=== PATIENT | female | born 1970 | race Caucasian/White ===

== ENCOUNTER 2017-12-29 07:44 | Observation (INO) | payer BC ==
[2017-12-29] MEDS ORDERED: NS 0.9% 1000 ML* 1,000 ML IVPB SCH (07:59)
[2017-12-29] MEDS ORDERED: LORazepam TAB(*) 1 MG PO ONE (08:00)
[2017-12-29] MEDS ORDERED: Ondansetron INJ* 2 MG/ML VIAL IV ONE (08:00)
[2017-12-29] MEDS ORDERED: oxyCODONE SR TAB(*) 10 MG TAB.SR PO ONE (08:00)
[2017-12-29] MEDS ORDERED: Naproxen TAB* 250 MG PO ONE (08:00)
[2017-12-29] MEDS ORDERED: Clindamycin 900 MG IVPREMIX(* 900 MG/50 ML SDV IV ONE (08:00)
[2017-12-29] MEDS ORDERED: Scopolamine 1.5 mg* PATCH TRANSDERM SCH (08:00)
[2017-12-29] MEDS ORDERED: D5W 1/2 NS 1000 ML BAG* 1,000 ML IV SCH (08:00)
[2017-12-29] MEDS ORDERED: Ondansetron INJ* 2 MG/ML VIAL ONE ×2 (08:17→10:04)
[2017-12-29] MEDS ORDERED: LORazepam TAB(*) 1 MG ONE (08:17)
[2017-12-29] MEDS ORDERED: Scopolamine 1.5 mg* PATCH ONE (08:17)
[2017-12-29] MEDS ORDERED: oxyCODONE SR TAB(*) 10 MG TAB.SR ONE (08:30)
[2017-12-29 08:47] LABS: EGFR Non-African American 85.8 (>60)
[2017-12-29] MEDS ORDERED: Naproxen TAB* 250 MG ONE (08:48)
[2017-12-29 08:56] LABS: INR 0.82 (0.77-1.02)
[2017-12-29 08:57] LABS: ABS Basophils 0 10^3/ul (0-0.2); ABS Eosinophils 0.4 10^3/ul (0-0.6); ABS Lymphocytes 2.1 10^3/ul (1.0-4.8); ABS Monocytes 0.3 10^3/ul (0-0.8); ABS Neutrophils 3.6 10^3/ul (1.5-7.7); ABS Nucleated RBC 0 10^3/ul; Eosinophil % 6.3 % (0-6); Hematocrit 39 % (35-47); Hemoglobin 13.6 g/dl (12.0-16.0); Lymphocyte % 32.5 % (25-47); Mean Corpuscular HGB Conc 35 g/dl (31-36); Mean Corpuscular Hemoglobin 30 pg (27-31); Mean Corpuscular Volume 86 fL (80-97); Mean Platelet Volume 8 um3 (7.4-10.4); Nucleated Red Blood Cells % 0.1; Platelet Count 309 10^3/ul (150-450); Red Blood Count 4.56 10^6/ul (4.0-5.4); Red Cell Distribution Width 13 % (10.5-15); White Blood Count 6.4 10^3/ul (3.5-10.8)
[2017-12-29] MEDS ORDERED: Iohexol 350 (CONTRAST) 200 ML MDV IV ONE (09:37)
[2017-12-29] MEDS ORDERED: Lidocaine 1% INJ* 10 MG/ML 30 ML SDV ONE (09:37)
[2017-12-29] MEDS ORDERED: Heparin 2 UNITS/ML IVPREMIX* 1,000 ML IV ONE (09:37)
[2017-12-29] MEDS ORDERED: Heparin 2 UNITS/ML IVPREMIX* 2,000 ML IV ONE (09:38)
[2017-12-29] MEDS ORDERED: Midazolam* 1 MG/ML 10 ML VIAL (10 MG) ONE (09:42)
[2017-12-29] MEDS ORDERED: Ketorolac INJ* 30 MG/ML 1 ML VIAL ONE ×2 (09:42→10:44)
[2017-12-29] MEDS ORDERED: fentaNYL* 50 MCG/ML 5 ML VIAL (250 MCG VIAL) ONE (09:42)
[2017-12-29] MEDS ORDERED: nitroGLYCERIN DRIP* 25,000 MCG/250 ML BTL ONE (09:42)
[2017-12-29] MEDS ORDERED: PROCHLORPERAZINE INJ 5 MG/ML 2 ML VIAL ONE (10:17)
[2017-12-29] MEDS ORDERED: fentaNYL* 50 MCG/ML 2 ML VIAL (100 MCG VIAL) ONE ×2 (11:31→11:37)
[2017-12-29] MEDS ORDERED: HYDROmorphone PCA* 20 MG/20 ML PCA.SYRING ONE (11:34)
[2017-12-29] MEDS ORDERED: HYDROmorphone INJ* 1 MG/ML CARPUJECT SYRINGE ONE (11:55)
[2017-12-29] MEDS: NS 0.9% 1000 ML* 1,000 ML IV SCH ×2 (12:35→19:09)
[2017-12-29] MEDS ORDERED: Diazepam SYRINGE* 5 MG/ML 2 ML SYRINGE (10 MG total) IV PRN (12:49)
[2017-12-29] MEDS ORDERED: HYDROmorphone PCA* 20 MG/20 ML PCA.SYRING PCA SCH (13:00)
[2017-12-29] MEDS ORDERED: Diazepam INJ (NF) 5 MG/ML 10 ML VIAL (50 MG TOTAL) IV PRN (15:17)
[2017-12-29] MEDS ORDERED: PROCHLORPERAZINE INJ 5 MG/ML 2 ML VIAL IV PRN (16:16)
--- NOTE | 2017-12-29 16:41 | RAD ---
CPT II Codes: 6045F Procedure(s) performed: * Pelvic arteriogram including the lower abdominal aorta bilateral iliac arteries including the proximal portions of the superficial femoral arteries and femoral profundi. * Aortogram. * Catheter arteriography of the bilateral uterine arteries. * Catheter embolization of the bilateral uterine arteries. Date of service: December 2017 Indication for procedure: Heavy menstrual bleeding, urinary symptoms and pelvic pain in the presence of multiple uterine fibroids. Comparison: MRI of the pelvis November 09, 2017 Contrast: 90 mL Omnipaque 300 Fluoroscopy Time: 26.1 minutes Vessels Accessed: Percutaneous access was obtained with ultrasound guidance in the right common femoral artery in the retrograde direction towards the heart. Catheter arteriography was performed with the catheter tip in the following arteries: Aorta, Bilateral common iliac arteries, Bilateral internal iliac arteries and Bilateral uterine arteries. Anesthesia: Conscious sedation with IV Fentanyl and Versed as well as local 1% lidocaine injected locally at the arteriotomy site. Conscious sedation time: Timeout: 1003 hours Case end: 1149 hours Total conscious sedation time: 1 hour and 46 minutes Additional medications: * 500 mcg IA nitroglycerin injected intermittently throughout the course of the procedure to alleviate arterial spasm. * Intra-arterial Toradol, 15 mg injected into each uterine artery, for a total of 30 mg intra-arterial. * Intravenous Toradol, 30 mg. * Prior to the procedure the patient received: Ativan 1 mg p.o. Naproxen sodium 250 mg p.o. OxyContin 10 mg p.o. Scopolamine patch 1.5 mg transdermal applied to the mastoid process. Zofran 4 mg IV Antibiotic prophylaxis was provided by Clindamycin 900 mg IV PROCEDURE NOTE AND INTRAPROCEDURAL IMAGING FINDINGS: Immediately prior to the procedure the patient signed consent after thoroughly discussing all risks and benefits. The patient was positioned on the fluoroscopy table in the supine position and the bilateral groins were shaved, prepped and draped in standard sterile fashion. Using fluoroscopic imaging the location of the right common femoral head was marked externally with a skin marker on the patient's groin. Utilizing sonographic guidance and palpation the right common femoral artery was cannulated overlying the right femoral head with an 18-gauge needle. An ultrasound image was saved. A 0.035" Doe wire was slowly and smoothly advanced to the aortic bifurcation under fluoroscopic imaging. No buckling of the wire was visualized to indicate dissection. The needle was removed and a 5-New Zealander SideArm access sheath was advanced over the wire until the tip terminating at the right external iliac artery. Utilizing a hydrophilic 0.035" wire and 5-New Zealander C2 catheter the contralateral left common iliac artery was accessed. The wire was advanced under fluoroscopic control to the proximal left superficial femoral artery. The C2 catheter was removed and over the wire a 5 New Zealander Merit Impress catheter was advanced over the iliac bifurcation and the reverse curve was formed in the lower abdominal aorta. Utilizing the reverse curve catheter and the wire the ipsilateral right common iliac artery was selected. With the tip of the catheter in the proximal most portion of the right internal iliac artery, angiography was performed to detail the branches of the right internal iliac artery and to locate the ostium of the right uterine artery. Arteriograms in multiple oblique projections were performed to best discern the branch point of the uterine artery. The uterine artery was selected and cannulated utilizing the combination 0.035" wire and 5-New Zealander catheter. In order to ensure maximum arterial inflow for the purpose of particle distribution, a microcatheter and wire system were advanced into the 5-New Zealander catheter securing access into the uterine artery. Under careful fluoroscopic control access was maintained in the uterine artery while pushing back the 5-New Zealander catheter until the tip resided more superiorly in the internal iliac artery. Prior to embolization, contrast injection into the horizontal portion of the uterine artery demonstrated a small amount of collateralized blood flow to the right adnexa and ovary from distal branches of the right uterine artery. It was not technically feasible to advance the microcatheter beyond the branch point of the uterine artery. Considering the patient's age it was determined potential partial embolization of the right ovary was unlikely due to morphology of the collateralization and would be clinically insignificant even if it did occur. Intra-arterial nitroglycerin was injected intermittently to alleviate arterial spasm. Under fluoroscopic control approximately 1/2 vial of 500 um Embozenes and 1/4 vial 500- 700 um Embospheres were slowly injected into the right uterine artery to near complete stasis. Towards the end of embolization 15 mg of Toradol was injected intra-arterially. The microcatheter was pulled back into the more proximal descending portion of the uterine artery and contrast angiography depicted near complete stasis of the uterine artery. The microcatheter and microwire were removed. Contrast arteriography through the 5-New Zealander catheter in the right internal iliac artery demonstrated patency and brisk flow through all branches of the internal iliac artery with the exception of the right uterine artery which demonstrates near complete stasis. The 0.035" wire was reinserted into the 5-New Zealander catheter and the system was utilized to access the contralateral left internal iliac artery. With the tip of the 5 New Zealander Merit Impress catheter in the proximal most portion of the left internal iliac artery, angiography was performed to detail the branches of the left internal iliac artery and to locate the ostium of the left uterine artery. Arteriograms in multiple oblique projections were performed to best discern the branch point of the uterine artery. Once the uterine artery was identified, the microcatheter and microwire were advanced into the parent catheter and, in conjunction with contrast angiography, the uterine artery was identified and selected with the microcatheter and wire system. Prior to embolization, contrast injection into the horizontal portion of the left uterine artery demonstrated no large, obvious collateral blood flow to the ovary or a definite cervicovaginal branch descending inferiorly. Intra-arterial nitroglycerin was injected intermittently to alleviate arterial spasm. Under fluoroscopic control approximately 1/8 vial of 500 um Embozenes and 1/4 vial 500-700 um Embospheres were slowly injected into the left uterine artery to near complete stasis. Towards the end of embolization 15 mg of Toradol was injected intra-arterially. The microcatheter was pulled back into the more proximal descending portion of the uterine artery and contrast angiography depicted near complete stasis of the uterine artery. The microcatheter and microwire were removed. Contrast arteriography through the 5-New Zealander catheter in the left internal iliac artery demonstrated patency and brisk flow through all branches of the internal iliac artery with the exception of the left uterine artery which demonstrates near complete stasis. The 5-New Zealander catheter and 0.035" wire were utilized to access the left external iliac artery which allowed a safe removal of the 5-New Zealander Impress catheter. Due to the lower than expected volume of the utilized during uterine artery embolization it was decided contrast arteriography of the abdominal aorta to study the ovarian arteries would be performed to determine if there are any large ovarian collaterals to the uterus or the uterine fibroids. The 0.035" was redirected to the abdominal aorta. Over the wire a "pigtail" multi sidehole injection catheter was advanced into the abdominal aorta immediately above the level of the renal arteries. An aortogram was performed visualizing the lower abdominal aorta and complete bilateral iliac arterial system. Incidentally noted are widely patent normal appearing renal arteries bilaterally as well as multilevel lumbar arteries and the inferior mesenteric artery. No large uterine arteries were identified. The wire was reinserted into the pigtail catheter, the loop straightened and both removed under fluoroscopic control. The access sheath was removed and pressure was held at the common femoral arteriotomy for approximately 15 minutes. There were no signs of bleeding at the right groin access site and the site was dressed with sterile gauze and Tegaderm. The patient tolerated the procedure well and was transferred to the short stay recovery unit in stable condition for routine overnight observation and pain and nausea control. SUMMARY OF PROCEDURE, IMAGING FINDINGS AND INTERVENTIONS PERFORMED: 1. Diagnostic studies performed: * Arterial access was obtained at the right common femoral artery in the retrograde direction (i.e. towards the heart) with ultrasound guidance. A sonographic image was recorded. * Diagnostic catheter angiography (necessary to perform the appropriate interventions) was performed with the catheter tip in the aorta, right common iliac artery, bilateral internal iliac arteries and bilateral uterine arteries. * Catheter arteriography was performed of the abdominal aorta, bilateral renal arteries, bilateral iliac arterial system and specifically the bilateral uterine arteries. 2. Interpretation of diagnostic studies performed: * Bilateral uterine arteries providing arterial flow to the uterus and uterine fibroids. * Aortography did not reveal any hypertrophied ovarian arteries providing flow to the uterus or the patient's uterine fibroids. 3. Surgical interventions performed: * Near stasis embolization of the bilateral uterine arteries utilizing approximately 5/8 vial of 500 um Embozenes and 3/4 vial 500-700 um Embospheres. 4. Interpretation of interventions performed: * Final arteriography demonstrated near complete stasis of the bilateral uterine arteries.. PLAN: 1. The patient will be admitted to short stay surgical unit for routine overnight observation including pain and nausea control. 2. Outpatient clinical and imaging follow-up according to the Interventional Radiology protocol.
[2017-12-29] MEDS ORDERED: Ondansetron INJ* 2 MG/ML VIAL IV SCH (17:00)
[2017-12-29] MEDS: Ketorolac INJ* 15 MG/ML 1 ML VIAL IV PUSH SCH ×2 (17:02→23:02)
--- NOTE | 2017-12-29 17:36 | PN ---
Progress Note - Progress Note Date of Service: 12/29/17 SOAP: Subjective: Pain currently controlled. No nausea. No emesis. Denies dizziness or vertigo. Objective: Selected Entries 12/29/17 12/29/17 15:34 16:32 Temperature 98.0 F Temperature Oral Source Pulse Rate 73 Respiratory 18 Rate Blood Pressure 121/65 (mmHg) Blood Pressure 77 Mean O2 Sat by Pulse 95 Oximetry Sleeping, but arousable to voice. AAO x 3 when aroused. Abdomen is soft, minimally tender to palpation over suprapubic area Right groin is soft, nontender 2+ pulses at right [employer], pop and DPA Right leg is neuromuscular intact Assessment: 47 YOF status post UFE with pain and nausea currently controlled. Plan: 1. Patient seems to respond better to compazine than zofran. Will change anti- emetic to Compazine 10 mg IV Q 6 hours. 2. Otherwise standard overnight pain & nausea control according to Interventional Radiology protocol.
[2017-12-29] MEDS ORDERED: Ondansetron INJ* 2 MG/ML VIAL IV PRN (17:40)
--- NOTE | 2017-12-29 20:44 | HP ---
CC: Jannette Khanna MD * HISTORY AND PHYSICAL: DATE OF ADMISSION: 12/29/17 PRIMARY CARE PROVIDER: Jannette Khanna MD ATTENDING PHYSICIAN WHILE IN THE HOSPITAL: Ellen Lindsay MD * (dictated by Moon Ashby NP). CHIEF COMPLAINT: Status post uterine artery embolization. HISTORY OF PRESENT ILLNESS: Ms. Falcon is a 47-year-old female who was admitted to the hospital for inter-ventional radiology with urinary and gynecological symptoms in the presence of multiple uterine fibroids. The patient first discovered her uterine fibroids in 2012 after experiencing scant premenstrual bleeding and dyspareunia, anemia. She underwent a myomectomy with Dr. Paul in 2012. Subsequently, her symptoms improved until she began to experience lower abdominal and pelvic pressure and pain for the past 2 years. At baseline, she has major pelvic pain, rates it at a 4/10 and bad at 8/10 during the week of her menses. For the past 2 years, she has required an extra large box of menstrual pads, 32 pads for every cycle. She was admitted to the hospital to Interventional Radiology today for uterine artery embolization, we were asked to see and coordinate her medical care during her hospitalization. PAST MEDICAL HISTORY: 1. GERD. 2. Pure hypercholesterolemia. 3. Hypertension. 4. Uterine leiomyoma. PAST SURGICAL HISTORY: 1. Myomectomy in 2012. 2. She had a perforated right tympanic membrane which was repaired with a patch that did not hold. MEDICATIONS: 1. Hydrochlorothiazide 25 mg p.o. daily. 2. Procardia 60 mg p.o. daily. ALLERGIES TO MEDICATIONS: 1. PENICILLIN. 2. ZITHROMAX. 3. LEVOFLOXACIN. FAMILY HISTORY: Father due to cancer, patient states prostate cancer. Mother, hypertension. SOCIAL HISTORY: The patient does not smoke, she does not drink. She does not do any illicit drug use. 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 Her surrogate decision maker in the event she is unable to make her own medical decisions is her significant other, Singh [place], his phone number is [phone]. REVIEW OF SYSTEMS: There is no documented fever, there has been no significant weight change. There is no double vision, no ear drainage. No rhinorrhea. She denies any sore throat. She denies having chest pain or shortness of breath. She denies nausea or vomiting. Denies dysuria or urinary frequency. Denies any loss of consciousness. No pruritus or skin ulcerations. She does complain of some lower abdominal pain and heavy vaginal bleeding. Review of 14 systems is completed and all others are negative. PHYSICAL EXAMINATION GENERAL: At this time, Ms. Falcon is a 47-year-old female, she appears tired post surgery, resting in the bed. She does not appear to be in any acute distress. VITAL SIGNS: Temperature was 98.0, pulse rate 73, respirations 16, O2 saturation 97%, blood pressure 121/65. HEENT: Head is atraumatic, normocephalic. Eyes: EOMs are intact. Sclerae anicteric, not pale. Oral mucosa appears moist. No oropharyngeal erythema. NECK: Supple. LUNGS: Clear to auscultation bilaterally. No wheezes, rales or rhonchi. CARDIAC: S1, S2. Rate and rhythm is regular. No murmurs, rubs or gallops. ABDOMEN: Soft. Bowel sounds are present x4. EXTREMITIES: Pulses are +2 throughout, she is moving all 4 extremities with strength 5/5. NEUROLOGIC: She is awake to verbal stimuli. She is drowsy from her surgery. She is oriented x3. Her speech is clear. There is no focal deficits. SKIN: Intact. DIAGNOSTIC STUDIES AND LABORATORY DATA: WBC's are 6.4, RBC's 4.56, hemoglobin 13.6, hematocrit was 39, platelet count was 309,000. INR was 0.82. PTT was 29.8. Chemistry: Sodium 137, potassium 3.2, chloride 102, carbon dioxide was 27, anion gap was 8, BUN 13, creatinine 0.73. Glucose was 91, calcium 9.9. Beta HCG quantitative was less than 0.60. ASSESSMENT AND PLAN: Ms. Falcon is a 47-year-old female that presented to the hospital today for a uterine artery embolization by Dr. Oliveira. We were asked to evaluate her and manage her medical conditions. She will be admitted to short-stay surgical. 1. Uterine artery embolization: Management per Dr. Oliveira. 2. Hypertension: We will continue her hydrochlorothiazide and Procardia. 3. Gastroesophageal reflux disease: She is not currently on any medication. 4. Pure hypercholesterolemia: She is borderline and she is not on any medication at this time. 5. DVT prophylaxis: She will be placed on SCDs. 6. Code status: She is a full code. 7. Fluid, electrolytes and nutrition: She can have a regular diet. TIME SPENT: Time spent on this H and P was approximately 60 minutes, greater than the half of that time was spent with the patient obtaining history and physical and the other half was going over the plan of care with the patient and implementing the plan of care. I discussed this plan with my attending Dr. Ellen Lindsay and she is in agreement. MOON ASHBY, MUSIC MIXER [id number]/CPS #: [id number] ZAID
[2017-12-29] MEDS: PROCHLORPERAZINE INJ 5 MG/ML 2 ML VIAL IV SCH (23:01)
[2017-12-30] MEDS: NS 0.9% 1000 ML* 1,000 ML IV SCH ×2 (00:06→05:31)
[2017-12-30] MEDS: PROCHLORPERAZINE INJ 5 MG/ML 2 ML VIAL IV SCH (04:47)
[2017-12-30] MEDS: Ketorolac INJ* 15 MG/ML 1 ML VIAL IV PUSH SCH (04:48)
--- NOTE | 2017-12-30 08:38 | PN ---
Progress Note - Progress Note Date of Service: 12/30/17 SOAP: Subjective: No pain complaints. Patient reports 5/10 cramping at right pelvis. Denies nausea or emesis. + void. Has been drinking water and has eaten jello and mashed potatoes. Objective: Selected Entries 12/30/17 07:35 Temperature 98.7 F Temperature Temporal Artery Source Scan Pulse Rate 72 Respiratory 16 Rate Blood Pressure 131/67 (mmHg) Blood Pressure 79 Mean O2 Sat by Pulse 96 Oximetry NAD, AAO x 3 Sleepy, but arousable to voice. Abd is soft, minimally tender to palpation over the suprapubic area. Right groin is soft, nontender Dressing is CDI 2+ pulses at right [employer], pop and DPA Right leg is neuromuscular intact Assessment: 47 YOF POD #1 Uterine Fibroid Embolization, pain and nausea adequately controlled and taking PO without issue. Plan: 1. Transition IV to PO medications. 2. Encourage continue to advance diet. 3. Ambulate with assistance.
[2017-12-30] MEDS ORDERED: HYDROcodone/ACETAMIN 5-325 MG* 1 TAB PO PRN (08:40)
[2017-12-30] MEDS ORDERED: Hydrochlorothiazide TAB* 25 MG PO SCH (09:00)
[2017-12-30] MEDS ORDERED: NIFEdipine ER TAB* 60 MG PO SCH (09:00)
[2017-12-30] MEDS ORDERED: Ketorolac TAB * 10 MG TAB PO SCH (11:00)
--- NOTE | 2017-12-30 11:37 | PN ---
Progress Note - Progress Note Date of Service: 12/30/17 SOAP: Subjective: Pain controlled at 2/10 "cramping" at right pelvis. No nausea or emesis. Small breakfast of apple sauce and dry cereal. Drinking water. Walked around unit x 1. + void. Wants to go home. Objective: Selected Entries 12/30/17 12/30/17 12/30/17 07:35 08:00 09:59 Temperature 98.7 F Temperature Temporal Artery Source Scan Pulse Rate 72 Respiratory 16 Rate Blood Pressure 131/67 (mmHg) Blood Pressure 79 Mean O2 Sat by Pulse 97 Oximetry Patient on Room Yes Air Physical Exam unchanged from earlier today. Assessment: 47 YOF POD #1 Uterine Fibroid Embolization with pain and nausea controlled with PO regimen has met criteria for D/C to home. Plan: 1. Discharge to home. 2. Routine Interventional Radiology follow up will include RN clinic follow up telephone calls Tuesday, and Tuesday. Follow up in the clinic in 6 weeks and 6 months. 3. Outpatient Rx regimen will include: Toradol 10 mg PO Q 6 hours x 3 days, dispense #15, 1 refill AFTER 3 days of Toradol, start Ibuprofen (aka, Advil) 400 mg PO every 6 hours x 3 days (DO NOT COMBINE TORADOL AND IBUPROFEN) Alex 5/325 1 or 2 tablets PO Q 6 hours PRN x 5 days, dispense #30 (thirty), no refills Compazine 10 mg PO Q 6 hours x 5 days, dispense #30, 1 refill Scopoloamine 1.5 mg TD patch: on the morning of Tuesday, replace current patch with new patch and wear x 3 days 4. Patient advised to purchase laxative tea (E.g. Smooth Move) and drink one cup daily x 1 week to avoid constipation.
[2017-12-30] MEDS ORDERED: Prochlorperazine TAB* 10 MG PO SCH (12:00)
[2017-12-30] MEDS ORDERED: diPHENhydraMINE PO* 50 MG PO ONE (13:01)
[2017-12-30] MEDS ORDERED: diPHENhydraMINE PO* 50 MG ONE (13:14)
[2017-12-30] MEDS ORDERED: oxyCODONE TAB* 5 MG TAB ONE (13:52)
[2017-12-30 14:31] VITALS: BP 119/64
[2017-12-30] MEDS ORDERED: oxyCODONE/Acetamin 5/325 MG* TAB PO PRN (14:34)
[2017-12-30] MEDS ORDERED: Diazepam TAB(*) 5 MG PO PRN (14:35)
--- NOTE | 2017-12-30 14:45 | PN ---
Progress Note - Progress Note Date of Service: 12/30/17 SOAP: Received call that patient had itchy rash on back and chest. Subjective: Pain "close to 10". No nausea or emesis. No itching after Benadryl. Objective: Selected Entries 12/30/17 12/30/17 11:30 13:55 Temperature 98.5 F Temperature Temporal Artery Source Scan Pulse Rate 73 Respiratory 20 Rate Blood Pressure 119/64 (mmHg) Blood Pressure 76 Mean O2 Sat by Pulse 93 Oximetry No rash visible. Physical Examination unchanged. Assessment: 47 YOF POD #1 s/p UFE with pain and rash after receiving [place]. Plan: 1. D/C [place]. 2. Rash resolved after Benadryl. 3. Patient confirmed again that she has taken Percocet in the past without issue. Will prescribe Percocet for breakthrough pain. 4. Add Valium 5 mg PO daily PRN x 5 days. 5. Still okay for D/C after one hour observation.
--- NOTE | 2018-01-01 02:19 | DS ---
CC: Jannette Khanna MD * DISCHARGE SUMMARY: DATE OF ADMISSION: 12/29/17 DATE OF DISCHARGE: 12/30/17 PRIMARY CARE PROVIDER: Jannette Khanna MD MY ATTENDING WHILE IN HOSPITAL: Charley Hernandez DO * (DICTATED BY KILO CARRION) STUDIES DONE WHILE IN THE HOSPITAL: Uterine artery embolization. Please see report. PRIMARY DISCHARGE DIAGNOSIS: Uterine fibroid. SECONDARY DISCHARGE DIAGNOSES: 1. Gastroesophageal reflux disease. 2. Hypercholesterolemia. 3. Hypertension. MEDICATIONS AT DISCHARGE: 1. Control 1 tab p.o. q.a.m. 2. Hydrochlorothiazide 25 mg p.o. daily. 3. Nifedipine 60 mg p.o. daily. NEW MEDICATIONS AT DISCHARGE: 1. Ibuprofen 400 mg p.o. q.6 hours as needed. 2. Ketorolac 10 mg q.6 hours as needed for 3 days 3. Percocet 1 tab p.o. q.6 hours as needed for 5 days. 4. Compazine 10 mg p.o. q.6 hours x5 days. 5. Scopolamine 1 patch transdermal 1.5 mg one patch transdermal once. 6. Diazepam 5 mg p.o. q.8 hours x7 days. NEW MEDICATIONS AT DISCHARGE: 1. Percocet. 2. Compazine. 3. Scopolamine. 4. Diazepam. 5. Ibuprofen. 6. Ketorolac. MEDICATIONS DISCONTINUED AT DISCHARGE: None. HOSPITAL COURSE: This is a brief summary of the patient's presentation. For more details, please see the history and physical from Moon Ashby NP from 12/29/17. In brief, the patient is a 47-year-old female with a past medical history significant for the above who presented to the emergency department for a planned Interventional Radiology uterine artery embolization for multiple uterine fibroids. The patient previously undergone myomectomy, but had persistent pelvic pain and menorrhagia. The patient underwent a uterine artery embolization on 12/29/[address] Oliveira. Please see report for more details. Patient improved. The patient had significant pain. It was controlled with IV pain medication and had significant nausea, which was controlled with Compazine. On 12/30/17, the patient's vital signs were stable. The patient was switched to p.o. medications with [place], Percocet and Toradol. On 12/30/17, the patient developed a rash in the morning of 12/30/17. The patient's only new medication was [place]. The patient was instructed not to take [place] again and was switched to Percocet which he had taken previously without incident. The patient was given Benadryl. The patient has no respiratory symptoms. The patient felt her pain was now controlled with oral pain medication and was discharged on 12/30/17. The patient had a slight amount of bleeding with her urination, which is a normal consequence of this procedure and was told to call Dr. Oliveira's office if this gets worse or persists. Dr. Oliveira is aware. PHYSICAL EXAMINATION AT DISCHARGE: The patient is a 47-year-old female who appears stated age and sitting comfortably in bed, in no acute distress. Vital signs at the time of discharge: Temperature 98.5, pulse rate 73, respiratory rate 16, oxygen saturation 93% on room air, blood pressure 119/64. HEENT: Head normocephalic, atraumatic. Sclerae anicteric. No conjunctival injection. Nasal mucosa moist. Oral mucosa moist. No pharyngeal erythema, discharge or exudate. Neck: Supple, nontender, no lymphadenopathy, no carotid bruits auscultated. Cardiac: Regular rate and rhythm. No clicks, murmurs, gallops, or rubs. Pulses 2+ in bilateral dorsalis pedis, posterior tibialis, and radial areas. No swelling noted in the bilateral lower extremities. Respiratory: Clear to auscultation bilaterally. No wheezes, rales, rhonchi, good air exchange bilaterally. Abdomen: Soft, nontender, nondistended, bowel sounds present, normoactive in all 4 quadrants. Genitourinary: No suprapubic tenderness or CVA tenderness. Skin: The patient has a macular rash on her upper chest, left side of her abdomen and on her right hand, which does not itch and is not warm or inflamed. No rash. Neuro: Cranial nerves II through XII grossly intact. No focal deficits. Alert and oriented x3. Psychiatric: Pleasant and cooperative. LABORATORY DATA ON DAY OF DISCHARGE: Not available. The laboratory note from admission, potassium 3.2, hemoglobin of 13.6 on admission, platelet count 309. Beta hCG less than 0.6. DISCHARGE PLAN: The patient will be discharged to home on pain medications as above. The patient is proceeding routinely from procedure. The patient was instructed to take Benadryl as needed at home for persistent rash. The patient is to call her primary care provider or Dr. Oliveira's office if her rash progresses. The patient should return to the emergency department if she develops shortness of breath or swelling of her face or neck in conjunction with her rash. The patient should follow discharge instructions as outlined by Dr. Oliveira and follow up as instructed. The patient should engage in activities as tolerated, engage in no excessive physical activity in the first week and easing back to her normal level of functioning. The patient is to have regular, unrestricted diet. The patient should return to the hospital for alarming symptoms such as chest pain, shortness of breath or significant increase in her bleeding from significant increase in her hematuria. TIME SPENT: Approximately 60 minutes were spent on this discharge, 30 of which was spent [id number] with the patient obtaining history and physical and discussing the treatment plan. KILO CARRION [id number]/[facility] #: [id number] MTDLuis Enrique
[2018-01-01] MEDS ORDERED: Scopolamine PATCH Remove* 1 NOTE MISC PATCH OFF ONE (08:00)
== END 2017-12-30 16:30 | disposition home or self-care (01) ==
LOC: CHICATH 07:44 → SSU 12:35
PROVIDERS: ADMIT Internal Medicine; ATTEND Radiology Diagnostic Radiology
DX: D25.9 Leiomyoma of uterus, unspecified (principal); K21.9 Gastro-esophageal reflux disease without esophagitis; E78.00 Pure hypercholesterolemia, unspecified; I10 Essential (primary) hypertension; Z88.0 Allergy status to penicillin
CPT/HCPCS: 36415; 37243; 75625; 75736; 76937; 80048; 84702; 85025; 85610; 85730; 99156; 99157; A9270-GY; C1725; C1884; C1887; G0378; J0780; J1170; J1644; J1885; J2250; J2405; J3010; Q0164

== ENCOUNTER 2018-01-15 17:06 | Emergency (ER) | payer BC ==
--- OUTSIDE RECORDS SUMMARY | 2018-01-15 17:38 | XMS REPORT ---
:1970 External Reference #:[id number] Author Organization [facility] Address [address] [address] Phone [phone] Care Team Providers Name Role Phone Jannette Khanna MD Primary Care Physician Unavailable Payers Type Date Identification Numbers Payment Provider Subscriber Commercial Effective: Policy Number: [id number] [employer] Kristina Rob 2013 PayID: [id number] [address] [address] MARY ALICE Davila [address] Medigap Part B Effective: 2010 Policy Number: [id number] BS Facets Kristina Rob Expires: 2013 Group Name: [address] [address] PayID: [id number] MARY ALICE Davila [address] Problems Date Description Provider Status Onset: 02/11/2016 Essential hypertension Gladys Mckee, N.P. Active Onset: 03/21/2017 Pure hypercholesterolemia Gladys Mckee, N.P. Active Onset: 03/21/2017 Gastroesophageal reflux disease Gladys Mckee, N.P. Active Onset: 10/26/2017 Uterine leiomyoma Edward Oliveira M.D. Active Family History Date Family Member(s) Problem(s) Comments Father due to Cancer () Father due to Cancer () - specifics unknown Mother Hypertension age 73 First Son Healthy Age 19 Siblings 3 1 Sister - Healthy age 54 1 Brother - Healthy age 50 1 Brother - Healthy age 48 First Brother Healthy Second Brother Healthy First Sister Healthy Social History Type Date Description Comments Marital Status Lives With Boyfriend Occupation [employer] Manager [employer] ETOH Use Denies alcohol use Smoking Patient has never smoked Recreational Drug Use Never Used Drugs Daily Caffeine Consumes on average 1 cup of regular coffee per day Exercise Type/Frequency Exercises regularly Allergies, Adverse Reactions, Alerts Date Description Reaction Status Severity Comments 08/19/2010 Penicillin rash active Moderate r 02/20/2016 Zithromax Urticaria active 02/20/2016 Levofloxacin active Medications Medication Date Status Form Strength Qnty SIG Indications Ordering Provider Sulfamethoxazole/ 01/10 Active Tablets 800-160mg 14tab 1 tablet N39.0 Jannette Trimethoprim DS s twice Cotton, daily for M.D. 7 days Phenazopyridine 01/10 Active Tablets 200mg 6tabs 1 PO tid N39.0 Jannette HCL x 2 days Cotton, M.D. Nifedipine ER 01/04 Active Tablets ER 60mg 90tab Take 1 Osmotic Release 24HR s Tablet By Varn, N.P. Mouth Every Day Omeprazole 02/[address] 20mg 30cap Take 1 K21.9 s Capsule Varn, N.P. By Mouth Every Day prn Nifedical XL 11/09 Active Tablets ER 60mg 90tab take 1 24HR s tablet by Cotton, mouth M.D. every day Hydrochlorothiazi 09/10 Active Tablets 25mg 90tab take one s tablet by Cotton, mouth M.D. every day Lo-Ovral-28 08/19 Active Tablet 84tab take one s tablet by Cotton, mouth M.D. every day Medrol (Maicol) 02/19 Hx Tablets 4mg 1Pak 6 tablets po day 1 Varn, N.P. - 5 tablets 02/25 po day 4 tablets po day 3 3 tablets po day 4 2 tablets po day 5 1 tablet po day 6 Levofloxacin 02/16 Hx Tablets 500mg 10tab one by s mouth Varn, N.P. - daily for 02/19 10 Zithromax 02/10 Hx Suspension 200mg/5ML 37ml 12.5 ml Rec for first Cotton, - day then M.D. 02/16 6 ml 4 days Fluticasone 02/10 Hx Suspension 50mcg/Act 16uni 1 sprays J01.00 ts each Varn, N.P. - nostril 02/21 daily as needed Xyzal 11/20 Hx Solution 2.5mg/5 310ml 1o ml by 477.9 ML mouth Varn, N.P. - every 05/21 night /2014 Tobrex 04/17 Hx Solution 0.3% 5ml 2 drop 372.00 every 4 Varn, N.P. - hours for 05/20 Levaquin 12/24 Hx Solution 500mg/100 700ml 500 mg po ML daily x Varn, N.P. - 10 days 12/31 Azithromycin 11/27 Hx Solution 500mg 5Days 500 mg 466.0 Rec once Cotton, - daily for M.D. 12/07 Robitussin ac 11/27 Hx Solution 120cc 1 - 2 tsp 466.0 q 4 - 6 Varn, N.P. - hrs prn 01/07 cough Flonase 09/16 Hx Suspension 50mcg/Act 16uni Inhale 2 ts Sprays In Varn, N.P. - Each 11/19 Nostril /2012 Every Day as Needed Azithromycin 08/21 Hx Tablets 250mg 6tabs two tabs 461.9 day one, Varn, N.P. - one daily 08/31 until gone Fluticasone 08/21 Hx Suspension 50mcg/Act 16gm 2 sprays 461.9 Gladys Propionate each Varn, N.P. - nostril 09/04 daily as needed Vesicare 05/16 Hx Tablets 5mg 90tab 1 po qd 596.9 Flakita Elías Rutledge M.D., FACP 10/02 Cipro Oral 05/08 Hx 250mg/5 70ml 5 ml bid 599.0 Jannette Suspension /2011 ML for 7 Cotton, - days M.D. 05/16 Azithromycin 01/31 Hx Solution 500mg 5Days 500 mg 461.9 Jannette /2012 Rec once Cotton, - daily for M.D. 05/08 5 days /2011 Flonase 01/31 Hx Suspension 50mcg/Act 1unit 2 461.9 s intranasa Cotton, - l puffs M.D. 03/02 to each nostril daily Flexeril Hx Tablets 10mg 20tab 1 po bid 847.0 s Walls, - M.D. 11/19 Ibuprofen Hx Tablets 600mg 40tab 1 tab by 847.0 s mouth Walls, - three M.D. 04/17 times day prn Cipro 12/18 Hx Suspension 250mg/5ML 70ml 5 ml by Rec (5%) mouth Cotton, - twice M.D. 12/18 daily for 7 days Bactrim DS 12/18 Hx Tablets 800-160mg 20tab one by s mouth Cotton, - twice M.D. 12/18 daily for 10 days Sulfamethoxazole12/18 Hx one by TMP mouth Cotton, - twice M.D. 12/25 daily for 7 days Lo/Ovral-28 09/10 Hx Tabs 0.3-30mg- 1Mo Take One mcg Tablet By Cotton, - Mouth M.D. 11/09 Every Day Zithromax 08/19 Hx Suspension 200mg/5ML 37ml 12.5 ml Rec for first Cotton, - day then M.D. 08/29 6 ml for 4 days Flonase 08/19 Hx Suspension 50mcg/Act 1unit 2 s intranasa Cotton, - l puffs M.D. 08/29 to each nostril daily HCTZ Hx 25mg. 90uni 1 tablet ts daily Cotton, - M.D. 11/09 Immunizations CPT Code Status Date Vaccine Reaction Lot # [id number] Given 09/21/2017 Influenza Virus Vaccine, Noimmediate [id number] Quadrivalent, Split, reaction... Preservative Free 29138 Given 08/13/2016 Influenza Virus Vaccine, no reaction noted .. . [id number] Quadrivalent, Split, Preservative Free Q2037 Given 09/14/2014 Fluvirin Im 3Yrs And Older Q2037 Given 09/15/2013 Fluvirin Im 3Yrs And Older [id number] 87037 Given 11/16/2012 Tdap - [id number] Tetanus/Diptheria/Acellula r Pertussis Q2037 Given 08/26/2012 Fluvirin Im 3Yrs And Older Q2037 Given 08/26/2012 Fluvirin Im 3Yrs And Older 05717 Given 09/11/2011 Influenza Virus 3Yrs & [id number] Over 60523 Given 09/25/2010 Influenza Virus 3Yrs & [id number] Over 05843 Given 08/26/2009 Influenza Virus 3Yrs & Over 80532 Given 08/28/2008 Influenza Virus 3Yrs & Over 66196 Given 08/28/2008 Influenza Virus 3Yrs & Over Vital Signs Date Vital Result Comment 01/10/2018 Weight 126.00 lb Heart Rate 99 /min BP Systolic 132 mmHg BP Diastolic 84 mmHg Body Temperature 98.8 F O2 % BldC Oximetry 98 % 01/09/2018 Weight 128.00 lb Heart Rate 89 /min BP Systolic 118 mmHg BP Diastolic 68 mmHg Body Temperature 98.3 F O2 % BldC Oximetry 98 % 10/26/2017 Height 61.5 inches 5'1.50" Weight 132.12 lb Heart Rate 84 /min BP Systolic Sitting 138 mmHg LA, reg BP Diastolic Sitting 78 mmHg LA, reg BMI (Body Mass Index) 24.6 kg/m2 09/21/2017 Weight 137.00 lb Heart Rate 75 /min BP Systolic 118 mmHg BP Diastolic 68 mmHg Body Temperature 98.5 F O2 % BldC Oximetry 98 % 03/21/2017 Height 61 inches 5'1" Weight 129.00 lb Heart Rate 81 /min BP Systolic Sitting 112 mmHg BP Diastolic Sitting 74 mmHg O2 % BldC Oximetry 99 % BMI (Body Mass Index) 24.4 kg/m2 02/21/2017 Weight 127.75 lb Heart Rate 84 /min BP Systolic 118 mmHg BP Diastolic 58 mmHg Body Temperature 97.4 F Pain Level 6 O2 % BldC Oximetry 99 % 08/13/2016 Weight 127.00 lb Heart Rate 76 /min BP Systolic Sitting 118 mmHg BP Diastolic Sitting 66 mmHg Respiratory Rate 15 /min Body Temperature 98.0 F O2 % BldC Oximetry 98 % 02/11/2016 Height 61 inches 5'1" Weight 127.00 lb Heart Rate 83 /min BP Systolic Sitting 114 mmHg BP Diastolic Sitting 71 mmHg Respiratory Rate 16 /min Body Temperature 98.3 F Pain Level 8 sinuses O2 % BldC Oximetry 98 % BMI (Body Mass Index) 24.0 kg/m2 05/21/2015 Height 61.50 inches 5'1.50" Weight 125.00 lb Heart Rate 74 /min BP Systolic 112 mmHg BP Diastolic 66 mmHg Body Temperature 99.4 F BMI (Body Mass Index) 23.2 kg/m2 11/20/2014 Height 61.50 inches 5'1.50" Weight 124.75 lb Heart Rate 99 /min BP Systolic Sitting 110 mmHg BP Diastolic Sitting 64 mmHg Body Temperature 98.3 F O2 % BldC Oximetry 99 % BMI (Body Mass Index) 23.2 kg/m2 05/20/2014 Weight 126.00 lb Heart Rate 66 /min BP Systolic Sitting 108 mmHg BP Diastolic Sitting 64 mmHg Body Temperature 99.3 F 04/17/2014 Weight 125.00 lb Heart Rate 80 /min BP Systolic 136 mmHg BP Diastolic 86 mmHg Respiratory Rate 16 /min Body Temperature 98.5 F 11/27/2013 Weight 126.00 lb Heart Rate 72 /min BP Systolic Sitting 120 mmHg BP Diastolic Sitting 72 mmHg Body Temperature 97.5 F 11/19/2013 Height 61.5 inches 5'1.50" Weight 123.75 lb Heart Rate 60 /min BP Systolic 134 mmHg BP Diastolic 78 mmHg BMI (Body Mass Index) 23.0 kg/m2 08/21/2013 Weight 125.00 lb Heart Rate 80 /min BP Systolic Sitting 122 mmHg BP Diastolic Sitting 74 mmHg Body Temperature 98.3 F 05/17/2013 Weight 123.00 lb Heart Rate 76 /min BP Systolic Sitting 122 mmHg BP Diastolic Sitting 78 mmHg 02/12/2013 Height 64 inches 5'4" Weight 122.00 lb Heart Rate 80 /min BP Systolic Sitting 110 mmHg BP Diastolic Sitting 74 mmHg BMI (Body Mass Index) 20.9 kg/m2 11/16/2012 Height 64 inches 5'4" Weight 129.00 lb Heart Rate 74 /min BP Systolic Sitting 118 mmHg BP Diastolic Sitting 70 mmHg BMI (Body Mass Index) 22.1 kg/m2 10/02/2012 Height 64 inches 5'4" Weight 127.00 lb Heart Rate 72 /min BP Systolic Sitting 116 mmHg BP Diastolic Sitting 68 mmHg BMI (Body Mass Index) 21.8 kg/m2 09/18/2012 Height 64 inches 5'4" Weight 128.00 lb Heart Rate 82 /min BP Systolic Sitting 118 mmHg BP Diastolic Sitting 66 mmHg BMI (Body Mass Index) 22.0 kg/m2 05/16/2012 Height 64 inches 5'4" Weight 127.00 lb Heart Rate 84 /min BP Systolic Sitting 110 mmHg BP Diastolic Sitting 66 mmHg BMI (Body Mass Index) 21.8 kg/m2 05/08/2012 Height 64 inches 5'4" Weight 126.00 lb Heart Rate 80 /min BP Systolic Sitting 124 mmHg BP Diastolic Sitting 80 mmHg Body Temperature 98.8 F BMI (Body Mass Index) 21.6 kg/m2 02/01/2012 Height 64 inches 5'4" Weight 126.00 lb Heart Rate 86 /min BP Systolic Sitting 120 mmHg BP Diastolic Sitting 80 mmHg Body Temperature 98.5 F BMI (Body Mass Index) 21.6 kg/m2 01/19/2012 Height 64 inches 5'4" Weight 123.50 lb Heart Rate 72 /min BP Systolic 128 mmHg BP Diastolic 78 mmHg Body Temperature 99.4 F BMI (Body Mass Index) 21.2 kg/m2 11/16/2011 Height 64 inches 5'4" Weight 123.00 lb Heart Rate 74 /min BP Systolic Sitting 112 mmHg BP Diastolic Sitting 66 mmHg BMI (Body Mass Index) 21.1 kg/m2 05/10/2011 Height 64 inches 5'4" Weight 124.00 lb Heart Rate 76 /min BP Systolic Standing 114 mmHg BP Diastolic Standing 76 mmHg BMI (Body Mass Index) 21.3 kg/m2 12/18/2010 Heart Rate 68 /min BP Systolic 112 mmHg BP Diastolic 72 mmHg Body Temperature 98.8 F 11/09/2010 Height 61.5 inches 5'1.50" Weight 118.50 lb Heart Rate 80 /min BP Systolic 102 mmHg BP Diastolic 68 mmHg BMI (Body Mass Index) 22.0 kg/m2 08/19/2010 Weight 118.38 lb Heart Rate 80 /min BP Systolic 122 mmHg BP Diastolic 78 mmHg Body Temperature 99.1 F Results Test Date Test Result H/L Range Note Ua Routine 01/10/2018 Ua Specific Beatty 1.005 Ua PH 7 Ua Color light yellow Ua Appera clear Ua WBC positive Ua Protein neg Ua Glucose normal Ua Ketones neg Ua Bilirubin neg Ua Urobilinogen normal Ua Nitrite neg Ua Occult Blood about 250 CBC Auto Diff 12/29/2017 White Blood Count 6.4 10^3/uL 3.5-10.8 Red Blood Count 4.56 10^6/uL 4.0-5.4 Hemoglobin 13.6 g/dL 12.0-16.0 Hematocrit 39 % 35-47 Mean Corpuscular Volume 86 fL 80-97 Mean Corpuscular Hemoglobin 30 pg 27-31 Mean Corpuscular HGB Conc 35 g/dL 31-36 Red Cell Distribution Width 13 % 10.5-15 Platelet Count 309 10^3/uL 150-450 Mean Platelet Volume 8 um3 7.4-10.4 Abs Neutrophils 3.6 10^3/uL 1.5-7.7 Abs Lymphocytes 2.1 10^3/uL 1.0-4.8 Abs Monocytes 0.3 10^3/uL 0-0.8 Abs Eosinophils 0.4 10^3/uL 0-0.6 Abs Basophils 0 10^3/uL 0-0.2 Abs Nucleated RBC 0 10^3/uL Granulocyte % 55.6 % 38-83 Lymphocyte % 32.5 % 25-47 Monocyte % 4.9 % 1-9 Eosinophil % 6.3 % High 0-6 Basophil % 0.7 % 0-2 Nucleated Red Blood Cells % 0.1 Laboratory test finding 12/29/2017 Partial Thrombo Time 29.8 seconds 26.0 -36.3 PTT Basic Metabolic Panel 12/29/2017 Sodium 137 mmol/L 133-145 Potassium 3.2 mmol/L Low 3.5-5.0 Chloride 102 mmol/L 101-111 Co2 Carbon Dioxide 27 mmol/L 22-32 Anion Gap 8 mmol/L 2-11 Glucose 91 mg/dL 70-100 Blood Urea Nitrogen 13 mg/dL 6-24 Creatinine 0.73 mg/dL 0.51-0.95 BUN/Creatinine Ratio 17.8 8-20 Calcium 9.9 mg/dL 8.6-10.3 Egfr Non- 85.8 >60 Egfr 110.4 >60 1 Laboratory test finding 12/29/2017 HCG < 0.60 mIU/mL 2 Inr/Protime 12/29/2017 Inr 0.82 0.77-1.02 Basic Metabolic Panel 11/08/2017 Sodium 136 mmol/L 133-145 Potassium 3.0 mmol/L Low 3.5-5.0 Chloride 100 mmol/L Low 101-111 Co2 Carbon Dioxide 30 mmol/L 22-32 Anion Gap 6 mmol/L 2-11 Glucose 97 mg/dL 70-100 Blood Urea Nitrogen 16 mg/dL 6-24 Creatinine 0.81 mg/dL 0.51-0.95 BUN/Creatinine Ratio 19.8 8-20 Calcium 9.3 mg/dL 8.6-10.3 Egfr Non- 76.1 >60 Egfr 97.9 >60 3 Laboratory test finding 11/03/2017 Surgical Pathology SEE RESULT BELOW 4, 5 Lipid Profile 09/01/2017 Triglycerides 55 mg/dL 6 (Trig/Chol/HDL) Cholesterol 250 mg/dL 7 HDL Cholesterol 57.6 mg/dL 8 LDL Cholesterol 181 mg/dL 9 Comp Metabolic Panel 09/01/2017 Sodium 140 mmol/L 133-145 Potassium 3.8 mmol/L 3.5-5.0 Chloride 105 mmol/L 101-111 Co2 Carbon Dioxide 28 mmol/L 22-32 Anion Gap 7 mmol/L 2-11 Glucose 83 mg/dL 70-100 Blood Urea Nitrogen 19 mg/dL 6-24 Creatinine 0.84 mg/dL 0.51-0.95 BUN/Creatinine Ratio 22.6 High 8-20 Calcium 9.5 mg/dL 8.6-10.3 Total Protein 6.8 g/dL 6.4-8.9 Albumin 4.3 g/dL 3.2-5.2 Globulin 2.5 g/dL 2-4 Albumin/Globulin Ratio 1.7 1-3 Total Bilirubin 0.50 mg/dL 0.2-1.0 Alkaline Phosphatase 63 U/L 34-104 Alt 10 U/L 7-52 Ast 11 U/L Low 13-39 Egfr Non- 73.0 >60 Egfr 93.9 >60 10 Lipid Profile (Trig/Chol/HDL) 08/04/2016 Triglycerides 93 mg/dL 11 Cholesterol 238 mg/dL 12 HDL Cholesterol 54.1 mg/dL 13 LDL Cholesterol 165 mg/dL 14 Comp Metabolic Panel 08/04/2016 Sodium 141 mmol/L 133-145 Potassium 3.9 mmol/L 3.5-5.0 Chloride 104 mmol/L 101-111 Co2 Carbon Dioxide 29 mmol/L 22-32 Anion Gap 8 mmol/L 2-11 Glucose 87 mg/dL 70-100 Blood Urea Nitrogen 17 mg/dL 6-24 Creatinine 0.79 mg/dL 0.51-0.95 BUN/Creatinine Ratio 21.5 High 8-20 Calcium 9.4 mg/dL 8.6-10.3 Total Protein 6.8 g/dL 6.4-8.9 Albumin 4.2 g/dL 3.2-5.2 Globulin 2.6 g/dL 2-4 Albumin/Globulin Ratio 1.6 1-3 Total Bilirubin 0.50 mg/dL 0.2-1.0 Alkaline Phosphatase 53 U/L 34-104 Alt 8 U/L 7-52 Ast 11 U/L Low 13-39 Egfr Non- 78.7 >60 Egfr 101.2 >60 15 Laboratory test finding 03/24/2016 (HCG) Urine Negative Negative 16 Lipid Profile 02/04/2016 Triglycerides 69 mg/dL 17 (Trig/Chol/HDL) Cholesterol 226 mg/dL 18 HDL Cholesterol 62.4 mg/dL 19 LDL Cholesterol 150 mg/dL 20 Comp Metabolic Panel 02/04/2016 Sodium 139 mmol/L 133-145 Potassium 3.7 mmol/L 3.5-5.0 Chloride 104 mmol/L 101-111 Co2 Carbon Dioxide 27 mmol/L 22-32 Anion Gap 8 mmol/L 2-11 Glucose 87 mg/dL 70-100 Blood Urea Nitrogen 16 mg/dL 6-24 Creatinine 0.76 mg/dL 0.51-0.95 BUN/Creatinine Ratio 21.1 High 8-20 Calcium 9.3 mg/dL 8.6-10.3 Total Protein 6.7 g/dL 6.4-8.9 Albumin 4.2 g/dL 3.2-5.2 Globulin 2.5 g/dL 2-4 Albumin/Globulin Ratio 1.7 1-3 Total Bilirubin 0.40 mg/dL 0.2-1.0 Alkaline Phosphatase 51 U/L 34-104 Alt 7 U/L 7-52 Ast 11 U/L Low 13-39 Egfr Non- 82.3 >60 Egfr 105.8 >60 21 Comp Metabolic Panel 12/05/2014 Sodium 139 mmol/L 133-145 22 Potassium 3.6 mmol/L 3.5-5.0 22 Chloride 105 mmol/L 101-111 22 Co2 Carbon Dioxide 28 mmol/L 22-32 22 Anion Gap 6 mmol/L 2-11 22 Glucose 90 mg/dL 70-100 22 Blood Urea Nitrogen 16 mg/dL 6-24 22 Creatinine 0.80 mg/dL 0.51-0.95 22 BUN/Creatinine Ratio 20.0 8-20 22 Calcium 9.3 mg/dL 8.6-10.3 22 Total Protein 6.7 g/dL 6.4-8.9 22 Albumin 4.3 g/dL 3.2-5.2 22 Globulin 2.4 g/dL 2-4 22 Albumin/Globulin Ratio 1.8 1-3 22 Total Bilirubin 0.50 mg/dL 0.2-1.0 22 Alkaline Phosphatase 58 U/L 34-104 22 Alt 6 U/L Low 7-52 22 Ast 10 U/L Low 13-39 22 Egfr Non- 78.3 >60 22 Egfr 100.7 >60 22, 23 Lipid Profile (Trig/Chol/HDL) 12/05/2014 Triglycerides 80 mg/dL 22, 24 Cholesterol 211 mg/dL 22, 25 HDL Cholesterol 61.9 mg/dL 22, 26 LDL Cholesterol 133 mg/dL 22, 27 CBC With Manual Diff 01/07/2014 White Blood Count 7.1 10^3/uL 4.8-10.8 Red Blood Count 4.59 10^6/uL 4.0-5.4 Hemoglobin 13.7 g/dL 12.0-16.0 Hematocrit 40 % 35-47 Mean Corpuscular Volume 87 fL 80-97 Mean Corpuscular Hemoglobin 30 pg 27-31 Mean Corpuscular HGB Conc 35 g/dL 31-36 Red Cell Distribution Width 13 % 10.5-15 Platelet Count 336 10^3/uL 150-450 Mean Platelet Volume 9 um3 7.4-10.4 Abs Neutrophils 4.0 10^3/uL 1.5-7.7 Abs Lymphocytes 2.2 10^3/uL 1.0-4.8 Abs Monocytes 0.4 10^3/uL 0-0.8 Abs Eosinophils 0.6 10^3/uL 0-0.6 Abs Basophils 0 10^3/uL 0-0.2 Abs Nucleated RBC 0.01 10^3/uL Neutrophil % 56 % 38-83 Lymphocytes % 32 % 25-47 Monocytes % 6 % 0-13 Eosinophils % 6 % 0-6 RBC Morphology Normal Normal Laboratory test finding 01/07/2014 Ferritin 14.9 ng/mL 11-307 28 Comp Metabolic Panel 01/07/2014 Sodium 140 mmol/L 133-145 Potassium 3.8 mmol/L 3.7-5.6 Chloride 103 mmol/L 101-111 Co2 Carbon Dioxide 27 mmol/L 22-32 Anion Gap 10 mmol/L 2-11 Glucose 90 mg/dL 70-100 Blood Urea Nitrogen 16 mg/dL 6-24 Creatinine 0.82 mg/dL 0.51-0.95 BUN/Creatinine Ratio 19.5 8-20 Calcium 9.2 mg/dL 8.6-10.3 Total Protein 7.1 g/dL 6.4-8.9 Albumin 4.6 g/dL 3.2-5.2 Globulin 2.5 g/dL 2-4 Albumin/Globulin Ratio 1.8 1-3 Total Bilirubin 0.50 mg/dL 0.2-1.0 Alkaline Phosphatase 65 U/L 34-104 Alt 8 U/L 7-52 Ast 12 U/L Low 13-39 Egfr Non- 76.5 >60 Egfr 98.3 >60 29 Lipid Profile (Trig/Chol/HDL) 01/07/2014 Triglycerides 72 mg/dL 30 Cholesterol 226 mg/dL 31 HDL Cholesterol 66.1 mg/dL 32 LDL Cholesterol 146 mg/dL 33 Urinalysis 04/01/2013 Urine Color Yellow Urine Appearance Clear Urine Specific Beatty 1.015 1.010-1.030 Urine Esterase Negative Negative Urine Nitrate Negative Negative Urine Urobilinogen Negative E.U./dL Negative Urine Protein Negative mg/dL Negative Urine pH 7.5 5-9 Urine Blood Negative Negative Urine Ketones 1+ mg/dL Negative Urine Bilirubin Negative Negative Urine Glucose Negative mg/dL Negative CBC Auto Diff 03/31/2013 White Blood Count 12.9 10^3/uL High 4.8-10.8 Red Blood Count 4.39 10^6/uL 4.0-5.4 Hemoglobin 13.2 g/dL 12.0-16.0 Hematocrit 38 % 35-47 Mean Corpuscular Volume 87 fL 80-97 Mean Corpuscular Hemoglobin 30 pg 27-31 Mean Corpuscular HGB Conc 35 g/dL 31-36 Red Cell Distribution Width 13 % 10.5-15 Platelet Count 270 10^3/uL 150-450 Mean Platelet Volume 8 um3 7.4-10.4 Abs Neutrophils 10.6 10^3/uL High 1.5-7.7 Abs Lymphocytes 1.7 10^3/uL 1.0-4.8 Abs Monocytes 0.3 10^3/uL 0-0.8 Abs Eosinophils 0.2 10^3/uL 0-0.6 Abs Basophils 0.1 10^3/uL 0-0.2 Abs Nucleated RBC 0 10^3/uL Granulocyte % 82.3 % 38-83 Lymphocyte % 13.1 % Low 25-47 Monocyte % 2.5 % 1-9 Eosinophil % 1.6 % 0-6 Basophil % 0.5 % 0-2 Nucleated Red Blood Cells % 0 Laboratory test finding 03/31/2013 Serum Negative Negative 34 Comp Metabolic Panel 03/31/2013 Sodium 137 mmol/L 133-145 Potassium 4.1 mmol/L 3.5-5.0 Chloride 104 mmol/L 101-111 Co2 Carbon Dioxide 22.0 mmol/L 22-32 Anion Gap 11.0 mmol/L 2-11 Glucose 119 mg/dL High 70-100 Blood Urea Nitrogen 13 mg/dL 6-24 Creatinine 0.70 mg/dL 0.50-1.40 BUN/Creatinine Ratio 18.6 8-20 Calcium 9.6 mg/dL 8.1-9.9 Total Protein 7.1 g/dL 6.2-8.1 Albumin 4.5 g/dL 3.6-5.4 Globulin 2.6 g/dL 2-4 Albumin/Globulin Ratio 1.7 1-3 Total Bilirubin 1.2 mg/dL 0.4-1.5 Alkaline Phosphatase 62 U/L 30-110 Alt 14 U/L 14-54 Ast 24 U/L 12-42 Egfr Non- 91.8 >60 Egfr 118.0 >60 35 Laboratory test 03/31/2013 C Reactive Protein < 0.5 mg/dL Less than 0.5 finding Comp Metabolic Panel 11/17/2012 Sodium 141 mmol/L 133-145 Potassium 3.7 mmol/L 3.5-5.0 Chloride 108 mmol/L 101-111 Co2 Carbon Dioxide 28.0 mmol/L 22-32 Anion Gap 5.0 mmol/L 2-11 Glucose 87 mg/dL 70-100 Blood Urea Nitrogen 16 mg/dL 6-24 Creatinine 0.80 mg/dL 0.50-1.40 BUN/Creatinine Ratio 20.0 8-20 Calcium 9.1 mg/dL 8.1-9.9 Total Protein 6.1 g/dL Low 6.2-8.1 Albumin 3.9 g/dL 3.6-5.4 Globulin 2.2 g/dL 2-4 Albumin/Globulin Ratio 1.8 1-3 Total Bilirubin 0.5 mg/dL 0.4-1.5 Alkaline Phosphatase 62 U/L 30-110 Alt 11 U/L Low 14-54 Ast 12 U/L 12-42 Egfr Non- 79.0 >60 Egfr 101.7 >60 36 Laboratory test 11/17/2012 TSH (Thyroid Stimulating 1.73 miu/mL 0.34- 5.60 37 finding Horm) Lipid Profile 11/17/2012 Triglycerides 68 mg/dL 40-200 (Trig/Chol/HDL) Cholesterol 221 mg/dL High Less than 200 HDL Cholesterol 62 mg/dL High 40-60 38 Cholesterol/HDL Ratio 3.6 Average 1-4.44 LDL Cholesterol 145.4 mg/dL High Less Than 100 39 Ua Routine 11/16/2012 Ua Specific Beatty 1.010 Ua PH 5 Ua Color yellow Ua Appera cloudy Ua WBC neg Ua Protein neg Ua Glucose neg Ua Ketones neg Ua Bilirubin neg Ua Urobilinogen neg Ua Nitrite neg Ua Occult Blood small CBC Auto Diff 09/24/2012 White Blood Count 9.9 10^3/uL 4.8-10.8 Red Blood Count 4.68 10^6/uL 4.0-5.4 Hemoglobin 14.4 g/dL 12.0-16.0 Hematocrit 41 % 35-47 Mean Corpuscular Volume 88 fL 80-97 Mean Corpuscular Hemoglobin 31 pg 27-31 Mean Corpuscular HGB Conc 35 g/dL 31-36 Red Cell Distribution Width 13 % 10.5-15 Platelet Count 336 10^3/uL 150-450 Mean Platelet Volume 8 um3 7.4-10.4 Abs Neutrophils 5.0 10^3/uL 1.5-7.7 Abs Lymphocytes 3.5 10^3/uL 1.0-4.8 Abs Monocytes 0.7 10^3/uL 0-0.8 Abs Eosinophils 0.6 10^3/uL 0-0.6 Abs Basophils 0.1 10^3/uL 0-0.2 Abs Nucleated RBC 0 10^3/uL Granulocyte % 50.5 % 38-83 Lymphocyte % 35.4 % 25-47 Monocyte % 6.8 % 1-9 Eosinophil % 6.0 % 0-6 Basophil % 1.3 % 0-2 Nucleated Red Blood Cells % 0 Laboratory test finding 09/24/2012 Inr 0.78 Low 0.82-1.17 40 Activated Partial Thrombo Time 27.5 Sec 22.18-37.18 41 D Dimer Quantitative < 200 NG/ML Less Than 230 42 Laboratory test finding 09/24/2012 Serum Negative Negative 43 Laboratory test finding 09/24/2012 Creatine Kinase 105 U/L 0-200 CKMB 09/24/2012 CKMB In NG/ML 0.8 NG/ML 0.3-4.0 CKMB % 1.0 % 0-9 44 CKMB In NG/ML 0.8 NG/ML 0.3-4.0 CKMB % 1.0 % 0-9 45 Laboratory test finding 09/24/2012 Troponin I 0 NG/ML 46 CRP High Sensitivity 3.4 mg/L 47 Comp Metabolic Panel 09/24/2012 Sodium 137 mmol/L 133-145 Potassium 3.2 mmol/L Low 3.5-5.0 Chloride 105 mmol/L 101-111 Co2 Carbon Dioxide 25.0 mmol/L 22-32 Anion Gap 7.0 mmol/L 2-11 Glucose 104 mg/dL High 70-100 Blood Urea Nitrogen 16 mg/dL 6-24 Creatinine 0.90 mg/dL 0.50-1.40 BUN/Creatinine Ratio 17.8 8-20 Calcium 9.5 mg/dL 8.1-9.9 Total Protein 7.0 GM/DL 6.2-8.1 Albumin 4.3 GM/DL 3.6-5.4 Globulin 2.7 GM/DL 2-4 Albumin/Globulin Ratio 1.6 1-3 Total Bilirubin 0.7 mg/dL 0.1-1.0 48 Alkaline Phosphatase 76 U/L 30-110 Alt 10 U/L Low 14-54 Ast 15 U/L 12-42 Egfr Non- 69.0 >60 Egfr 88.7 >60 49 CBC Auto Diff 09/19/2012 White Blood Count 7.5 10^3/uL 4.8-10.8 Red Blood Count 4.33 10^6/uL 4.0-5.4 Hemoglobin 13.4 g/dL 12.0-16.0 Hematocrit 39 % 35-47 Mean Corpuscular Volume 89 fL 80-97 Mean Corpuscular Hemoglobin 31 pg 27-31 Mean Corpuscular HGB Conc 35 g/dL 31-36 Red Cell Distribution Width 13 % 10.5-15 Platelet Count 283 10^3/uL 150-450 Mean Platelet Volume 9 um3 7.4-10.4 Abs Neutrophils 4.6 10^3/uL 1.5-7.7 Abs Lymphocytes 2.0 10^3/uL 1.0-4.8 Abs Monocytes 0.4 10^3/uL 0-0.8 Abs Eosinophils 0.5 10^3/uL 0-0.6 Abs Basophils 0.1 10^3/uL 0-0.2 Abs Nucleated RBC 0 10^3/uL Granulocyte % 60.7 % 38-83 Lymphocyte % 26.9 % 25-47 Monocyte % 4.8 % 1-9 Eosinophil % 6.3 % High 0-6 Basophil % 1.3 % 0-2 Nucleated Red Blood Cells % 0.1 Laboratory test finding 09/19/2012 TSH (Thyroid Stimulating 2.11 MIU/ML 0.34-5.60 Horm) Beta HCG Quantitative < 2.1 MIU/ML 0.0-5.0 50 Urine Culture & 05/08/2012 M <SEE 51 Sensitivi NOTE> Comp Metabolic Panel 12/01/2011 Sodium 140 mmol/L 135-145 Potassium 3.5 mmol/L 3.5-5.0 Chloride 100 mmol/L Low 101-111 Co2 (Carbon Dioxide) 28.0 mmol/L 22-32 Anion Gap 12.0 mmol/L High 2-11 52 Glucose 96 mg/dL 70-100 BUN 15 mg/dL 6-24 Creatinine 0.8 mg/dL 0.50-1.40 One Over Creatinine 1.25 BUN/Creatinine Ratio 18.8 8-20 Calcium 9.2 mg/dL 8.1-9.9 Total Protein 7.1 GM/DL 6.2-8.1 Albumin 4.3 GM/DL 3.6-5.4 Globulin 2.8 GM/DL 2-4 Albumin/Globulin Ratio 1.5 1-3 Bilirubin Total 0.8 mg/dL 0.4-1.5 53 Alkaline Phosphatase 64 U/L 30-110 Alt (SGPT) 12 U/L Low 14-54 Ast (Sgot) 16 U/L 12-42 eGFR Non- 79.4 > 60 eGFR 102.2 > 60 54 Lipid Profile (Trig/Chol/HDL) 12/01/2011 Triglyceride 68 mg/dL 40-200 Cholesterol 238 mg/dL High Less Than 200 55 High Density Lipoprotein 62 mg/dL High 40-60 56 Cholesterol/HDL Ratio 3.84 AVERAGE 1-4.44 Low Density Lipoprotein 162 mg/dL High Less Than 100 57 Laboratory test finding 12/01/2011 TSH 1.22 MIU/ML 0.34-5.60 Laboratory test finding 11/16/2011 Cytology <SEE 58 NOTE> 1 Because ethnic data is not always readily available, this report includes an eGFR for both -Americans and non- Americans. The National Kidney Disease Education Program (NKDEP) does not endorse the use of the MDRD equation for patients that are not between the ages of 18 and 70, are , have extremes of body size, muscle mass, or nutritional status, or are non- or non-. According to the National Kidney Foundation, irrespective of diagnosis, the stage of the disease is based on the level of kidney function: Stage Description GFR(mL/min/1.73 m(2)) 1 Kidney damage with normal or decreased GFR 90 2 Kidney damage with mild decrease in GFR 60-89 3 Moderate decrease in GFR 30-59 4 Severe decrease in GFR 15-29 5 Kidney failure <15 (or dialysis) 2 <5.0 Negative 5.0 - 25.0 Indeterminate (Repeat testing recommended after 72 hours) >25.0 Positive Perimenopausal women can display HCG levels of up to 20 mIU/mL 3 Because ethnic data is not always readily available, this report includes an eGFR for both -Americans and non- Americans. The National Kidney Disease Education Program (NKDEP) does not endorse the use of the MDRD equation for patients that are not between the ages of 18 and 70, are , have extremes of body size, muscle mass, or nutritional status, or are non- or non-. According to the National Kidney Foundation, irrespective of diagnosis, the stage of the disease is based on the level of kidney function: Stage Description GFR(mL/min/1.73 m(2)) 1 Kidney damage with normal or decreased GFR 90 2 Kidney damage with mild decrease in GFR 60-89 3 Moderate decrease in GFR 30-59 4 Severe decrease in GFR 15-29 5 Kidney failure <15 (or dialysis) 4 [id number] 5 SEE RESULT BELOW Name: KRISTINA ROB : [address]: Sabrina Asher NP Acct: [id number] Unit: [id number] AGE: 47 Location: [facility] Re11/03/17 SEX: F Status: REG REF SPEC: [id number] NILA: 11/03/17- DR: Sabrina Asher NP REQ: [id number] RECD: 11/03/17 STATUS: JOSE HACKETT DR: Edward Oliveira MD _ ORDERED: LEVEL 4 COMMENTS: [id number] FINAL DIAGNOSIS Uterus, endometrium, biopsy: -- Proliferative endometrium. -- No evidence of hyperplasia or neoplasia identified. CLINICAL HISTORY Protocol for uterine fibroid embolization. PRE-OPERATIVE DIAGNOSIS D25.9,N92.0 GROSS DESCRIPTION The specimen is received in formalin labeled, Uterus, and consists of a 1.6 x 1.0 x 0.3 cm aggregate of red-brown blood clot admixed with soft tissue and mucus. The specimen is filtered and submitted entirely in one cassette. Signed (signature on file) Michael Reyes MD 1400 END OF REPORT * ML=Testing performed at Main Lab DEPARTMENT OF PATHOLOGY, [address] [place] [address] Michael Reyes M.D. Director [facility] # [id number] 6 Desirable <150 Borderline high 150-199 High 200-499 Very High >500 7 Desirable <200 Borderline high 200-239 High >239 8 Low <40 Desirable: 40-60 High: >60 9 Desirable: <100 mg/dL Near Optimal: 100-129 mg/dL Borderline High: 130-159 mg/dL High: 160-189 mg/dL Very High: >189 mg/dL 10 Because ethnic data is not always readily available, this report includes an eGFR for both -Americans and non- Americans. The National Kidney Disease Education Program (NKDEP) does not endorse the use of the MDRD equation for patients that are not between the ages of 18 and 70, are , have extremes of body size, muscle mass, or nutritional status, or are non- or non-. According to the National Kidney Foundation, irrespective of diagnosis, the stage of the disease is based on the level of kidney function: Stage Description GFR(mL/min/1.73 m(2)) 1 Kidney damage with normal or decreased GFR 90 2 Kidney damage with mild decrease in GFR 60-89 3 Moderate decrease in GFR 30-59 4 Severe decrease in GFR 15-29 5 Kidney failure <15 (or dialysis) 11 Desirable <150 Borderline high 150-199 High 200-499 Very High >500 12 Desirable <200 Borderline high 200-239 High >239 13 Low <40 Desirable: 40-60 High: >60 14 Desirable: <100 mg/dL Near Optimal: 100-129 mg/dL Borderline High: 130-159 mg/dL High: 160-189 mg/dL Very High: >189 mg/dL 15 Because ethnic data is not always readily available, this report includes an eGFR for both -Americans and non- Americans. The National Kidney Disease Education Program (NKDEP) does not endorse the use of the MDRD equation for patients that are not between the ages of 18 and 70, are , have extremes of body size, muscle mass, or nutritional status, or are non- or non-. According to the National Kidney Foundation, irrespective of diagnosis, the stage of the disease is based on the level of kidney function: Stage Description GFR(mL/min/1.73 m(2)) 1 Kidney damage with normal or decreased GFR 90 2 Kidney damage with mild decrease in GFR 60-89 3 Moderate decrease in GFR 30-59 4 Severe decrease in GFR 15-29 5 Kidney failure <15 (or dialysis) 16 If is still suspected, please repeat test after 48 to 72 hours. This test detects intact HCG only and is indicated for the early detection of . 17 Desirable <150 Borderline high 150-199 High 200-499 Very High >500 18 Desirable <200 Borderline high 200-239 High >239 19 Low <40 Desirable: 40-60 High: >60 20 Desirable: <100 mg/dL Near Optimal: 100-129 mg/dL Borderline High: 130-159 mg/dL High: 160-189 mg/dL Very High: >189 mg/dL 21 Because ethnic data is not always readily available, this report includes an eGFR for both -Americans and non- Americans. The National Kidney Disease Education Program (NKDEP) does not endorse the use of the MDRD equation for patients that are not between the ages of 18 and 70, are , have extremes of body size, muscle mass, or nutritional status, or are non- or non-. According to the National Kidney Foundation, irrespective of diagnosis, the stage of the disease is based on the level of kidney function: Stage Description GFR(mL/min/1.73 m(2)) 1 Kidney damage with normal or decreased GFR 90 2 Kidney damage with mild decrease in GFR 60-89 3 Moderate decrease in GFR 30-59 4 Severe decrease in GFR 15-29 5 Kidney failure <15 (or dialysis) 22 PT IS FASTING 23 Because ethnic data is not always readily available, this report includes an eGFR for both -Americans and non- Americans. The National Kidney Disease Education Program (NKDEP) does not endorse the use of the MDRD equation for patients that are not between the ages of 18 and 70, are , have extremes of body size, muscle mass, or nutritional status, or are non- or non-. According to the National Kidney Foundation, irrespective of diagnosis, the stage of the disease is based on the level of kidney function: Stage Description GFR(mL/min/1.73 m(2)) 1 Kidney damage with normal or decreased GFR 90 2 Kidney damage with mild decrease in GFR 60-89 3 Moderate decrease in GFR 30-59 4 Severe decrease in GFR 15-29 5 Kidney failure <15 (or dialysis) 24 Desirable <150 Borderline high 150-199 High 200-499 Very High >500 25 Desirable <200 Borderline high 200-239 High >239 26 Low <40 Desirable: 40-60 High: >60 27 Desirable <100 Near Optimal 100-129 Borderline high 130-159 High 160-189 Very High >189 28 FASTING 12 HOUR Please get this done soon 29 Because ethnic data is not always readily available, this report includes an eGFR for both -Americans and non- Americans. The National Kidney Disease Education Program (NKDEP) does not endorse the use of the MDRD equation for patients that are not between the ages of 18 and 70, are , have extremes of body size, muscle mass, or nutritional status, or are non- or non-. According to the National Kidney Foundation, irrespective of diagnosis, the stage of the disease is based on the level of kidney function: Stage Description GFR(mL/min/1.73 m(2)) 1 Kidney damage with normal or decreased GFR 90 2 Kidney damage with mild decrease in GFR 60-89 3 Moderate decrease in GFR 30-59 4 Severe decrease in GFR 15-29 5 Kidney failure <15 (or dialysis) 30 Desirable <150 Borderline high 150-199 High 200-499 Very High >500 31 Desirable <200 Borderline high 200-239 High >239 32 Low <40 Desirable: 40-60 High: >60 33 Desirable <100 Near Optimal 100-129 Borderline high 130-159 High 160-189 Very High >189 34 This test detects intact HCG only and is indicated for the early detection of . 35 Because ethnic data is not always readily available, this report includes an eGFR for both -Americans and non- Americans. The National Kidney Disease Education Program (NKDEP) does not endorse the use of the MDRD equation for patients that are not between the ages of 18 and 70, are , have extremes of body size, muscle mass, or nutritional status, or are non- or non-. According to the National Kidney Foundation, irrespective of diagnosis, the stage of the disease is based on the level of kidney function: Stage Description GFR(mL/min/1.73 m(2)) 1 Kidney damage with normal or decreased GFR 90 2 Kidney damage with mild decrease in GFR 60-89 3 Moderate decrease in GFR 30-59 4 Severe decrease in GFR 15-29 5 Kidney failure <15 (or dialysis) 36 Because ethnic data is not always readily available, this report includes an eGFR for both -Americans and non- Americans. The National Kidney Disease Education Program (NKDEP) does not endorse the use of the MDRD equation for patients that are not between the ages of 18 and 70, are , have extremes of body size, muscle mass, or nutritional status, or are non- or non-. According to the National Kidney Foundation, irrespective of diagnosis, the stage of the disease is based on the level of kidney function: Stage Description GFR(mL/min/1.73 m(2)) 1 Kidney damage with normal or decreased GFR 90 2 Kidney damage with mild decrease in GFR 60-89 3 Moderate decrease in GFR 30-59 4 Severe decrease in GFR 15-29 5 Kidney failure <15 (or dialysis) 37 FASTING 12 HOUR Please get this done soon 38 HDL Interpretation: Undesirable: High Risk: Less than 40 MG/DL Desirable: Low Risk: Greater than 60 MG/DL 39 LDL Interpretation: Low Risk Optimal Level: LDL Less than 100 MG/DL Near or Above Optimal: LDL 100-129 MG/DL Borderline High Risk: LDL 130-159 MG/DL High Risk: LDL 160-189 MG/DL Very High Risk: LDL Greater than 189 MG/DL 40 Effective August 21, 2012, in conjunction with the upgrade of the hospital information system, [facility] will release the International Normalized Ratio (INR) only. Patient reports will no longer contain prothrombin time (PT) results in seconds. This allows for consistency in patient evaluation and treatment. The INR was adopted by the World Health Organization (WHO) in 1983 as a standardized system of reporting PT. The Centers for Disease Control (CDC) states that reporting of PT results in INR only is the preferred method. Recommended INR for Patients on Oral Anticoagulants Prophylaxis 2.0 - 3.0 Treatment of thrombosis 2.0 - 3.0 Prevention of embolism 2.0 - 3.0 Prevention of embolism from prosthetic heart valves 2.5 - 3.5 41 Effective September 20, 2012 new APTT reference and therapeutic values have been implemented. 42 Please note: The following may produce a false positive D Dimer test: - Rheumatoid factor greater than 60 IU/ml - Plasma hemoglobin greater than 0.05 gm/dl - Bilirubin greater than 50 mg/dl - Lipids greater than 1000 mg/dl - FDP greater than 20 ug/ml 43 This test detects intact HCG only and is indicated for the early detection of . 44 Interpretation %CK-MB; < 5% Not supportive of diagnosis of CO 5 - <10% Indeterminate; suggest serial studies 10% or > Consistent with diagnosis of CO 45 Interpretation %CK-MB; < 5% Not supportive of diagnosis of CO 5 - <10% Indeterminate; suggest serial studies 10% or > Consistent with diagnosis of CO 46 Reference Range and Interpretation: TnI (ng/ml) Interpretation Less Than 0.06 ng/mL Not supportive of diagnosis of CO 0.06 - 0.50 ng/ml Indeterminate: suggest serial studies if clinically indicated. Greater than 0.5 ng/mL Consistent with diagnosis of CO 47 Less Than 1.0......Low Risk of Cardiovascular Disease 1.0-3.0............Medium Risk (<2 Fold Increase) Greater Than 3.0...High Risk (Approximately 2-Fold Increase) 48 A metabolite of Naproxen, O-desmethylnaproxen, has been shown to interfere with the [place] method for measuring total bilirubin. Samples from patients who have taken Naproxen have shown spurious elevation in total bilirubin levels. 49 Because ethnic data is not always readily available, this report includes an eGFR for both -Americans and non- Americans. The National Kidney Disease Education Program (NKDEP) does not endorse the use of the MDRD equation for patients that are not between the ages of 18 and 70, are , have extremes of body size, muscle mass, or nutritional status, or are non- or non-. According to the National Kidney Foundation, irrespective of diagnosis, the stage of the disease is based on the level of kidney function: Stage Description GFR(mL/min/1.73 m(2)) 1 Kidney damage with normal or decreased GFR 90 2 Kidney damage with mild decrease in GFR 60-89 3 Moderate decrease in GFR 30-59 4 Severe decrease in GFR 15-29 5 Kidney failure <15 (or dialysis) 50 Males: < 5.0 miu/ml Non females < 5.0 miu/ml Approx gestational age approx HCG range 0-1 week < 5.0-50 1-2 weeks 50-500 2-3 weeks 100-5000 3-4 weeks 500-10,000 1-2 months 10,000-200,000 2-3 months 15,000-100,000 Please note: The intended use of this assay is the quantitative determination of HCG in human serum or plasma for the early detection of . These assays should not be used to diagnose any condition unrelated to . If an HCG level is inconsistent with, or unsupported by, clinical evidence, results should be confirmed by an alternate HCG method. 51 RUN DATE: 05/11/12 [facility] NMI LIVE PAGE 1 RUN TIME: 1117 Specimen Inquiry RUN USER: INTERFACE Name: KRISTINA ROB Accbryan#: [id number] Status: REG REF Re05/08/12 Age/Sex: 42/F Unit#: [id number] Location: [facility] : 72 SPEC #: [id number] NILA: 05/08/12-7949 STATUS: ELROY JUNE #: [id number] RECD: 05/08/12-[address]: Gladys Gloria SOURCE: URINE ENTR: 05/08/12-[address]: [facility]: ORDERED: URINE C S QUERIES: MEDENT REQUISITION # [id number] SPECIMEN DESCRIPTION: URINE, RANDOM ACT WKST: UR 05/11/12 #1 Procedure Result Verified Site > URINE CULTURE SENSITIVI Final -1117 ML SCANT NORMAL URETHRAL OR PERINEAL WENDY ML - [facility] Permit #[id number] [address] [place] [id number] DEPARTMENT OF PATHOLOGY, [address] [place] [address] [facility] Permit #[id number] Michael Reyes M.D. Director Wilfredo Johnson M.D. Digital Community Manager 52 Anion gap measurement may be of limited value in the presence of any alkalosis, especially in a combined acid base disorder. . 53 A metabolite of Naproxen, O-desmethylnaproxen, has been shown to interfere with the [place]rass[place] method for measuring total bilirubin. Samples from patients who have taken Naproxen have shown spurious elevation in total bilirubin levels. 54 Because ethnic data is not always readily available, this report includes an eGFR for both -Americans and non- Americans. The National Kidney Disease Education Program (NKDEP) does not endorse the use of the MDRD equation for patients that are not between the ages of 18 and 70, are , have extremes of body size, muscle mass, or nutritional status, or are non- or non-. According to the National Kidney Foundation, irrespective of diagnosis, the stage of the disease is based on the level of kidney function: Stage Description GFR(mL/min/1.73 m(2)) 1 Kidney damage with normal or decreased GFR 90 2 Kidney damage with mild decrease in GFR 60-89 3 Moderate decrease in GFR 30-59 4 Severe decrease in GFR 15-29 5 Kidney failure <15 (or dialysis) 55 CHOLESTEROL INTERPRETATION: Desirable: Less than 200 MG/DL Borderline-High Risk: 200-239 MG/DL High-Risk: 240 MG/DL and over 56 HDL INTERPRETATION: Undesirable: High Risk: Less than 40 MG/DL Desirable: Low Risk: Greater than 60 MG/DL 57 LDL INTERPRETATION: Low Risk Optimal Level: LDL Less than 100 MG/DL Near or Above Optimal: LDL 100-129 MG/DL Borderline High Risk: LDL 130-159 MG/DL High Risk: LDL 160-189 MG/DL Very High Risk: LDL Greater than 189 MG/DL 58 ---- RUN DATE: 11/17/11 [facility] NMI LIVE PAGE 1 RUN TIME: 1148 Specimen Inquiry RUN USER: INTERFACE -- Name: KRISTINA ROB Status: REG REF Re11/16/11 Age/Sex: 41/F Unit#: [id number] Location: [facility] : 72 -- Specimen: [id number] SOUT Spec Date: 11/16/[address]: Gladys PADILLAP Spec Type: CYTOLOGY Received: 11/17/11 Copies to: SOURCE ECTOCERVICAL/ENDOCERVICAL Thin Prep with Reflex HPV Test PATIENT INFORMATION ACTUAL COLLECTION DATE: 11/16/11 ? No POST MENOPAUSAL? No HYSTERECTOMY? No PREVIOUS ABNORMAL PAP SMEARS No LAST MENSTRUAL PERIOD: 11/03/11 ADEQUACY OF SPECIMEN Satisfactory for evaluation * Transformation zone component identified * DIAGNOSIS NEGATIVE FOR INTRAEPITHELIAL LESION OR MALIGNANCY * This Pap test was evaluated with the assistance of the ThinPrep Pap Test Imaging System. The Pap Smear is a screening test designed to aid in the detection of premalign ant and malignant conditions of the uterine cervix. It is not a diagnostic procedure a nd should not be used as the sole means of detecting cervical cancer. Both false- positiv e and false-negative reports do occur. Depending on your risk status, a Pap smear nicolasa uld be obtained and evaluated every one to three years. Initial evaluation performed by Leti HAYNES([facility] [place] 11/17/11 Final Interpretation electronically signed by: Leti HAYNES([facility] [place] 11/17/11 1146 -- -- DEPARTMENT OF PATHOLOGY, [address] [place] [address] [facility] Permit #[id number] Michael Reyes M.D. Director Wilfredo Johnson M.D. Grader Tender Dir tamra -- Procedures Date CPT Code Description Status 12/29/2017 50031 Moderate Sedation Services; Same Phys Each Additional Completed 15 Mins 12/29/2017 60734 Moderate Sedation Services; Same Phys Intl 15 Mins; PT Completed >=5 Years 12/29/2017 46657 Ultrasound Guidance For Vascular Access Completed 12/29/2017 28297 Vascular Embolization Or Occlu Tumor Organ Ischemia Or Completed Infarction 12/29/2017 28880 Catheter Placement Arterial System Init 3RD Order Completed Abdom/Pelv/Low 12/20/2016 Mammogram Completed 03/12/2016 Mammogram Completed 12/05/2014 Mammogram Completed 12/04/2013 Mammogram Completed 12/03/2013 54982 Pulmonary Function><Bronchodilator Completed 02/12/2013 15670 EKG Tracing & Interpretation Completed 12/01/2012 49024 Stress Test Completed 11/27/2012 Mammogram Completed 11/19/2011 Mammogram Completed 11/16/2011 38892 EKG Tracing & Interpretation Completed 08/26/2009 21738 EKG Tracing & Interpretation Completed 10/23/2008 31556 Destruction Of Benign Lesions Any Method 1-14 lesions Completed 09/06/2008 Mammogram Completed 10/02/2007 95903 Holter Monitor Review (24 hr)dr martinez [facility] Completed only 09/20/2007 49945 EKG Tracing & Interpretation Completed 07/25/2007 06397 EKG Tracing & Interpretation Completed 07/25/2007 41126 EKG Tracing & Interpretation Completed Encounters Type Date Location Provider CPT E/M Dx Office Visit 12/30/2017 10:27a [facility] Edward Oliveira, 39257 D25.9 Of [facility] MEleanor Office Visit 10/26/2017 2:30p [facility] Sekou Oliveira, 78743 D25.9 Of [facility] M.DEugenia Office Visit 09/21/2017 8:40a [facility] Internal Medicine Gladys Mckee, N.P. 27174 I10 - [place] R92.8 Z23 D25.9 Office Visit 03/21/2017 3:20p [facility] Internal Medicine Gladys Mckee, N.P. 04124 Z00.00 - [place] I10 E78.00 K21.9 Office Visit 02/21/2017 1:40p [facility] Internal Medicine Gladys Mckee, N.P. 31102 K21.9 - [place] H92.02 Office Visit 08/13/2016 8:40a [facility] Internal Medicine - Gladys Mckee, N.P. 18904 I10 [place] Z23 Office Visit 02/11/2016 9:00a [facility] Internal [facility] Gladys Mckee, N.P. 43529 Z00.00 - [place] Z12.31 I10 E78.0 J01.00 D37.02 K13.79 Office Visit 05/21/2015 8:40a [facility] Internal Medicine Gladys Mckee, N.P. 57156 401.1 - [place] Office Visit 11/20/2014 3:20p [facility] Internal Medicine Gladys Mckee, N.P. 84337 V70.0 - [place] V72.31 V76.10 401.1 477.9 218.9 V76.2 Office Visit 05/20/2014 8:40a [facility] Internal Medicine Gladys Mckee, N.P. 97735 401.1 - [place] 709.9 Office Visit 04/17/2014 2:40p [facility] Internal Medicine Gladys Mckee, N.P. 84039 372.00 - [place] Office Visit 11/27/2013 3:20p [facility] Internal Medicine Gladys Mckee, N.P. 96904 466.0 - [place] 461.9 Office Visit 11/19/2013 10:40a [facility] Internal Medicine Gladys Mckee, N.P. 82517 V70.0 - [place] V76.10 401.1 386.11 786.05 787.3 Office Visit 08/21/2013 1:00p [facility] Internal Medicine Gladys Mckee, N.P. 87279 461.9 - [place] Office Visit 05/17/2013 8:40a [facility] Internal Medicine Gladys Mckee, N.P. 77070 401.1 - [place] Office Visit 02/12/2013 3:40p [facility] Internal Medicine Gladys Mckee, N.P. 13697 V72.84 - [place] 218.9 401.9 Office Visit 11/16/2012 9:00a [facility] Internal Medicine Gladys Mckee, N.P. 66161 V70.0 - [place] V76.10 V72.31 401.1 272.4 786.05 V06.1 Office Visit 10/02/2012 4:00p [facility] Internal Medicine - Sherrell Loredo M.D. 27137 788.41 [place] 788.39 Office Visit 09/18/2012 11:00a [facility] Internal Medicine Sherrell Loredo M.D. 28831 626.2 - [place] Office Visit 05/16/2012 8:40a [facility] Internal Medicine Gladys Mckee, N.P. 95773 401.1 - [place] 596.9 Office Visit 05/08/2012 11:20a [facility] Internal Medicine Gladys Mckee, N.P. 99797 599.0 - [place] Office Visit 02/01/2012 4:20p [facility] Internal Medicine Gladys Mckee, N.P. 38280 461.9 - [place] 382.9 Office Visit 01/19/2012 10:45a [facility] Internal Medicine Payt Walls M.D. 00247 847.0 - [place] Office Visit 11/16/2011 1:20p DO Not Use Gladys Mckee, N.P. 60621 V70.0 [facility] [employer] [facility]-[place] 401.1 V72.31 272.4 V76.10 719.41 Office Visit 05/10/2011 1:20p DO Not Use [facility] Gladys Varn, 65990 401.1 N.P. 785.6 Office Visit 12/18/2010 2:30p DO Not Use Gladys Varn, 55915 599.0 [facility] [employer] [facility] N.P. Office Visit 11/09/2010 1:45p DO Not Use Gladys Varn, 35897 V72.31 [facility] N.P. Office Visit 08/19/2010 1:45p DO Not Use Gladys Varn, 98712 461.9 [facility] [employer] [facility] N.P. Office Visit 03/04/2010 11:30a DO Not Use Gladys Varn, 30454 466.0 [employer] [facility] N.P. 461.9 401.1 Office Visit 10/24/2009 11:30a DO Not Use Gladys Varn, 54442 382.9 [employer] [facility] N.P. Office Visit 08/26/2009 8:45a DO Not Use Gladys Varn, 34902 V72.31 [employer] [facility] N.P. 401.1 V04.81 Office Visit 05/06/2009 11:15a DO Not Use [employer] [facility] Gladys Varn, 56637 723.1 N.P. Office Visit 04/30/2009 1:30p DO Not Use [employer] [facility] Gladys Varn, 99611 461.9 N.P. 382.9 Office Visit 02/24/2009 3:45p DO Not Use Gladys Varn, 94574 401.1 [employer] [facility] N.P. Office Visit 12/13/2008 11:00a DO Not Use Flakita Coyle M.D., 43969 078.10 [employer] [place] FACP Office Visit 08/28/2008 10:45a DO Not Use Gladys Varn, 06031 V72.31 [employer] [place] N.P. 110.1 401.1 V04.81 Office Visit 03/20/2008 8:30a DO Not Use Gladys Varn, 02077 401.1 [employer] [place] N.P. Office Visit 02/21/2008 8:30a DO Not Use Gladys Varn, 64377 401.1 [employer] [place] N.P. Office Visit 01/26/2008 11:45a DO Not Use Gladys Varn, 48162 599.0 [employer] [facility] N.P. Office Visit 12/04/2007 11:30a DO Not Use Gladys Varn, 98636 465.9 [facility] [facility] Office Visit 10/04/2007 2:45p DO Not Use Gladys Varn, 08465 386.11 [facility] N.[facility] 782.0 Office Visit 09/20/2007 3:45p DO Not Use [facility] Gladys Varn, 18004 782.0 N.P. 780.2 Office Visit 08/22/2007 8:45a DO Not Use [facility] Gladys Varn, 88472 272.4 N.P. 401.1 Office Visit 07/25/2007 3:30p DO Not Use Gladys Varn, 27632 v72.31 [facility] N.P. 401.1 Plan of Care Future Appointment(s):02/08/2018 1:15 pm - Edward Oliveira M.D. at [facility] Vascular Medicine [facility]03/22/2018 1:40 pm - Gladys Mckee, N.P. at [facility] Internal Medicine [facility]01/10/2018 - Jannette Khanna M.D.N39.0 Urinary tract infection, site not specifiedNew Medication:Sulfamethoxazole/Trimethoprim DS 800-160 mgPhenazopyridine HCL 200 mgComments:Start the antibiotic The phenazopyridine is for bladder painWe will call you with culture results
--- OUTSIDE RECORDS SUMMARY | 2018-01-15 17:39 | XMS REPORT ---
:1970 External Reference #:[id number] Author Organization [facility] Address [address] [address] Phone [phone] Care Team Providers Name Role Phone Jannette Khanna MD Primary Care Physician Unavailable Payers Type Date Identification Numbers Payment Provider Subscriber Commercial Effective: Policy Number: [id number] [employer] Kristina Rob 2013 PayID: [id number] [address] [address] MARY ALICE Davila [address] Medigap Part B Effective: 2010 Policy Number: [id number] [employer] Kristina Rob Expires: 2013 Group Name: Ppo YOVANY [address] [address] PayID: [id number] MAYR ALICE Davila [address] Problems Date Description Provider Status Onset: 02/11/2016 [...] Comments Marital Status Lives With Boyfriend Occupation Manager [employer] ETOH Use Denies alcohol use [...] Form Strength Qnty SIG Indications Ordering Provider Nifedipine ER 01/04 Active Tablets ER 60mg 90tab Take 1 Osmotic 24HR s Tablet By Varn, N.P. Mouth [...] mouth Varn, N.P. - daily for 02/19 Zithromax 02/10 Hx Suspension 200mg/5ML 37ml 12.5 ml Rec for first Cotton, - day then M.D. 02/16 6 ml 4 days Fluticasone 02/10 Hx Suspension 50mcg/Act 16uni 1 sprays J01.00 ts each Varn, N.P. - nostril 02/21 daily needed Xyzal 11/20 Hx Solution 2.5mg/5 310ml [...] In Varn, N.P. - Each 11/19 Nostril Every Day as Needed Azithromycin 08/21 Hx Tablets 250mg 6tabs two tabs 461.9 day one, Varn, N.P. - one daily 08/31 until gone Fluticasone 08/21 Hx Suspension 50mcg/Act 16gm 2 sprays 461.9 each Varn, N.P. - nostril 09/04 daily needed Vesicare 05/16 Hx Tablets 5mg 90tab 1 po qd 596.9 Flakita Elías Rutledge M.D., FACP 10/02 Cipro Oral 05/08 Hx 250mg/5 70ml 5 ml bid 599.0 Jannette Suspension ML for 7 Cotton, - days M.D. 05/16 Azithromycin 01/31 Hx Solution 500mg 5Days 500 mg 461.9 Rec once Cotton, - daily for M.D. 05/08 Flonase 01/31 Hx Suspension 50mcg/Act 1unit 2 461.9 s intranasa Cotton, - l puffs M.D. 03/02 to nostril daily Flexeril Hx Tablets 10mg 20tab [...] mouth Cotton, - twice M.D. 12/25 daily 7 days Lo/Ovral-09/10 Hx Tabs 0.3-30mg- 1Mo Take One mcg Tablet By Cotton, - Mouth M.D. 11/09 Every Day Zithromax 08/19 Hx Suspension 200mg/5ML 37ml 12.5 ml Rec for first Cotton, - day then M.D. 08/29 6 ml 4 days Flonase 08/19 Hx Suspension 50mcg/Act 1unit 2 s intranasa Cotton, - l puffs M.D. 08/29 to nostril daily HCTZ Hx 25mg. 90uni 1 tablet ts daily Cotton, - M.D. 11/09 Immunizations CPT Code Status Date Vaccine Reaction Lot # [id number] Given 09/21/2017 Influenza Virus Vaccine, Noimmediate [id number] Quadrivalent, Split, reaction...jh Preservative Free [id number] Given 08/13/2016 Influenza Virus Vaccine, no reaction noted .. .hh [id number] Quadrivalent, Split, Preservative Free Q2037 Given 09/14/2014 Fluvirin Im 3Yrs And Older Q2037 Given 09/15/2013 Fluvirin Im 3Yrs And Older [id number] 57413 Given 11/16/2012 Tdap - [id number] Tetanus/Diptheria/Acellula r Pertussis Q2037 Given 08/26/2012 Fluvirin Im 3Yrs And Older Q2037 Given 08/26/2012 Fluvirin Im 3Yrs And Older 09455 Given 09/11/2011 Influenza Virus 3Yrs & [id number] Over 02586 Given 09/25/2010 Influenza Virus 3Yrs & [id number] Over 33969 Given 08/26/2009 Influenza Virus 3Yrs & Over 66957 Given 08/28/2008 Influenza Virus 3Yrs & Over 75187 Given 08/28/2008 Influenza Virus 3Yrs & Over Vital Signs Date Vital Result Comment 01/09/2018 Weight 128.00 lb Heart Rate 89 [...] Test Date Test Result H/L Range Note Laboratory test finding 12/29/2017 Partial Thrombo 29.8 seconds 26.0- 36.3 Time PTT CBC Auto Diff 12/29/2017 White Blood Count [...] 0-2 Nucleated Red Blood Cells % 0.1 Basic Metabolic Panel 12/29/2017 Sodium 137 mmol/L 133-145 Potassium 3.2 mmol/L Low 3.5-5.0 Chloride 102 mmol/L 101-111 Co2 Carbon Dioxide 27 mmol/L 22-32 Anion Gap 8 mmol/L 2-11 Glucose 91 mg/dL 70-100 Blood Urea Nitrogen 13 mg/dL 6-24 Creatinine 0.73 mg/dL 0.51-0.95 BUN/Creatinine Ratio 17.8 8-20 Calcium 9.9 mg/dL 8.6-10.3 Egfr Non- 85.8 >60 Egfr 110.4 >60 1 Inr/Protime 12/29/2017 Inr 0.82 0.77-1.02 Laboratory test finding 12/29/2017 HCG < 0.60 mIU/mL 2 Basic Metabolic Panel 11/08/2017 Sodium 136 mmol/L [...] Color Yellow Urine Appearance Clear Urine Specific Causey 1.015 1.010-1.030 Urine Esterase Negative Negative Urine Nitrate Negative Negative Urine Urobilinogen Negative E.U./dL Negative Urine Protein Negative mg/dL Negative Urine pH 7.5 5-9 Urine Blood Negative Negative Urine Ketones 1+ mg/dL Negative Urine Bilirubin Negative Negative Urine Glucose Negative mg/dL Negative Laboratory test 03/31/2013 C Reactive Protein < 0.5 mg/dL Less than 0.5 finding Comp Metabolic Panel 03/31/2013 Sodium 137 mmol/L [...] Egfr Non- 91.8 >60 Egfr 118.0 >60 34 Laboratory test finding 03/31/2013 Serum Negative Negative 35 CBC Auto Diff 03/31/2013 White Blood Count [...] Red Blood Cells % 0 Laboratory test 11/17/2012 TSH (Thyroid Stimulating 1.73 miu/mL 0.34- 5.60 36 finding Horm) Lipid Profile 11/17/2012 Triglycerides 68 mg/dL 40-200 (Trig/Chol/HDL) Cholesterol 221 mg/dL High Less than 200 HDL Cholesterol 62 mg/dL High 40-60 37 Cholesterol/HDL Ratio 3.6 Average 1-4.44 LDL Cholesterol 145.4 mg/dL High Less Than 100 38 Comp Metabolic Panel 11/17/2012 Sodium 141 mmol/L [...] Egfr Non- 79.0 >60 Egfr 101.7 >60 39 Ua Routine 11/16/2012 Ua Specific Causey 1.010 Ua PH 5 Ua Color yellow [...] 5 Kidney failure <15 (or dialysis) 4 [id number] 5 SEE RESULT BELOW Name: KRISTINA ROB Johanna : [address]: Sabrina Asher NP Acct: [id number] Unit: [id number] AGE: 47 Location: [facility] Re11/03/17 SEX: F Status: REG REF SPEC: [id number] NILA: 11/03/17 DR: Sabrina Asher NP REQ: [id number] RECD: 11/03/17 STATUS: JOSE HACKETT DR: Edward Oliveira MD _ ORDERED: LEVEL 4 COMMENTS: [id number] FINAL DIAGNOSIS Uterus, endometrium, biopsy: -- Proliferative [...] in one cassette. Signed (signature on file) Mihcael Reyes MD 1400 END OF REPORT * ML=Testing performed at Main Lab DEPARTMENT OF PATHOLOGY, [address] [place] [address] Michael Reyes M.D. Director [facility] # [id number] 6 Desirable <150 Borderline high 150-199 High [...] 130-159 High 160-189 Very High >189 34 Because ethnic data is not always readily [...] 15-29 5 Kidney failure <15 (or dialysis) 35 This test detects intact HCG only and is indicated for the early detection of . 36 FASTING 12 HOUR Please get this done soon 37 HDL Interpretation: Undesirable: High Risk: Less than 40 MG/DL Desirable: Low Risk: Greater than 60 MG/DL 38 LDL Interpretation: Low Risk Optimal Level: LDL Less than 100 MG/DL Near or Above Optimal: LDL 100-129 MG/DL Borderline High Risk: LDL 130-159 MG/DL High Risk: LDL 160-189 MG/DL Very High Risk: LDL Greater than 189 MG/DL 39 Because ethnic data is not always readily [...] 15-29 5 Kidney failure <15 (or dialysis) 40 Effective August 21, 2012, in conjunction with the upgrade of the hospital information system, [facility] will release the International Normalized Ratio [...] < 5% Not supportive of diagnosis of PR 5 - <10% Indeterminate; suggest serial studies 10% or > Consistent with diagnosis of PR 45 Interpretation %CK-MB; < 5% Not supportive of diagnosis of PR 5 - <10% Indeterminate; suggest serial studies 10% or > Consistent with diagnosis of PR 46 Reference Range and Interpretation: TnI (ng/ml) Interpretation Less Than 0.06 ng/mL Not supportive of diagnosis of PR 0.06 - 0.50 ng/ml Indeterminate: suggest serial studies if clinically indicated. Greater than 0.5 ng/mL Consistent with diagnosis of PR 47 Less Than 1.0......Low Risk of Cardiovascular Disease 1.0-3.0............Medium Risk (<2 Fold Increase) Greater Than 3.0...High Risk (Approximately 2-Fold Increase) 48 A metabolite of Naproxen, O-desmethylnaproxen, has been shown to interfere with the [place]rass[place] method for measuring total bilirubin. Samples from [...] alternate HCG method. 51 RUN DATE: 05/11/12 [facility] NMI LIVE PAGE 1 RUN TIME: 1117 Specimen Inquiry RUN USER: INTERFACE Name: KRISTINA ROB Status: REG REF Re05/08/12 Age/Sex: 42/F Unit#: [id number] Location: [facility] : 72 SPEC #: [id number] NILA: 05/08/12-113 STATUS: COMP REQ #: [id number] RECD: 05/08/12-[address] [facility] [address]: Rafi PADILLAPGladys SOURCE: URINE ENTR: 05/08/12-[address]: MEETAES: ORDERED: URINE C S QUERIES: MEDENT REQUISITION # [id number] SPECIMEN DESCRIPTION: URINE, RANDOM ACT WKST: UR 05/11/12 #1 Procedure Result Verified Site > URINE CULTURE SENSITIVI Final -1117 ML SCANT NORMAL URETHRAL OR PERINEAL WENDY - [facility] State Permit #[id number] [address] [place] [address] DEPARTMENT OF PATHOLOGY, [address] [place] [id number] [place] State Permit #[id number] Michael Reyes M.D. Director Wilfredo Johnson M.D. Crew Car Driver 52 Anion gap measurement may be of limited value in the presence of any alkalosis, especially in a combined acid base disorder. . 53 A metabolite of Naproxen, O-desmethylnaproxen, has been shown to interfere with the Jendrassik-Eduardo method for measuring total bilirubin. Samples from [...] 189 MG/DL 58 ---- RUN DATE: 11/17/11 [facility] NMI LIVE PAGE 1 RUN TIME: 1148 Specimen Inquiry RUN USER: INTERFACE -- Name: KRISTINA ROB Status: REG REF Re11/16/11 Age/Sex: 41/F Unit#: [id number] Location: [facility] : 72 -- Specimen: [id number] SOUT Spec Date: 11/16/[address]: Gladys lemos [facility] Spec Type: CYTOLOGY Received: 11/17/11-4435 Copies to: SOURCE ECTOCERVICAL/ENDOCERVICAL Thin Prep with [...] three years. Initial evaluation performed by Leti HAYNES([facility]) 11/17/11 Final Interpretation electronically signed by: Leti HAYNES CT([facility]) 11/17/11 1146 -- -- DEPARTMENT OF PATHOLOGY, [address] [place] [address] [facility] Permit #[id number] Michael Reyes M.D. Director Wilfredo Johnson M.D. Hand Rug Braider Dir tamra -- Procedures Date CPT Code Description Status 12/20/2016 Mammogram Completed 03/12/2016 Mammogram Completed 12/05/2014 Mammogram Completed 12/04/2013 Mammogram Completed 12/03/2013 33013 Pulmonary Function><Bronchodilator Completed 02/12/2013 83691 EKG Tracing & Interpretation Completed 12/01/2012 68222 Stress Test Completed 11/27/2012 Mammogram Completed 11/19/2011 Mammogram Completed 11/16/2011 29528 EKG Tracing & Interpretation Completed 08/26/2009 74925 EKG Tracing & Interpretation Completed 10/23/2008 47175 Destruction Of Benign Lesions Any Method 1-14 lesions Completed 09/06/2008 Mammogram Completed 10/02/2007 75133 Holter Monitor Review (24 hr)dr martinez & winston Completed only 09/20/2007 15994 EKG Tracing & Interpretation Completed 07/25/2007 97112 EKG Tracing & Interpretation Completed 07/25/2007 60191 EKG Tracing & Interpretation Completed Encounters Type Date Location Provider CPT E/M Dx Office Visit 10/26/2017 2:30p [facility] Vascular Medicine Edward Oliveira, 94526 D25.9 Of [facility] Office Visit 09/21/2017 8:40a [facility] Internal Medicine Gladys Mckee, N.P. 14906 I10 - [place] R92.8 Z23 D25.9 Office Visit 03/21/2017 3:20p [facility] Internal Medicine Gladys Mckee, N.P. 52666 Z00.00 - [place] I10 E78.00 K21.9 Office Visit 02/21/2017 1:40p [facility] Internal Medicine Gladys Mckee, N.P. 90295 K21.9 - [place] H92.02 Office Visit 08/13/2016 8:40a [facility] Internal Medicine Gladys Mckee, N.P. 94837 I10 [place] Z23 Office Visit 02/11/2016 9:00a [facility] Internal Medicine Gladys Mckee, N.P. 74181 Z00.00 - [place] Z12.31 I10 E78.0 J01.00 D37.02 K13.79 Office Visit 05/21/2015 8:40a [facility] Internal Medicine Gladys Mckee, N.P. 12791 401.1 - [place] Office Visit 11/20/2014 3:20p [facility] Internal Medicine Gladys Mckee, N.P. 75421 V70.0 - [place] V72.31 V76.10 401.1 477.9 218.9 V76.2 Office Visit 05/20/2014 8:40a [facility] Internal Medicine Gladys Mckee, N.P. 10289 401.1 - [place] 709.9 Office Visit 04/17/2014 2:40p [facility] Internal Medicine Gladys Mckee, N.P. 21203 372.00 - [place] Office Visit 11/27/2013 3:20p [facility] Internal Medicine Gladys Mckee N.P. 15241 466.0 - [place] 461.9 Office Visit 11/19/2013 10:40a [facility] Internal Medicine Gladys Mckee, N.P. 63380 V70.0 - [place] V76.10 401.1 386.11 786.05 787.3 Office Visit 08/21/2013 1:00p [facility] Internal Medicine Gladys Mckee, N.P. 19084 461.9 - [place] Office Visit 05/17/2013 8:40a [facility] Internal Medicine Gladys Mckee N.P. 43648 401.1 - [place] Office Visit 02/12/2013 3:40p [facility] Internal Medicine Gladys Mckee, N.P. 60853 V72.84 - [place] 218.9 401.9 Office Visit 11/16/2012 9:00a [facility] Internal Medicine Gladys Mckee N.P. 61730 V70.0 - [place] V76.10 V72.31 401.1 272.4 786.05 V06.1 Office Visit 10/02/2012 4:00p [facility] Internal Medicine - Sherrell Loredo M.D. 05945 788.41 [place] 788.39 Office Visit 09/18/2012 11:00a [facility] Internal Medicine Sherrell Loredo M.D. 67378 626.2 - [place] Office Visit 05/16/2012 8:40a [facility] Internal Medicine Gladys Mckee, N.P. 78496 401.1 - [place] 596.9 Office Visit 05/08/2012 11:20a [facility] Internal Medicine Gladys Mckee, N.P. 02668 599.0 - [place] Office Visit 02/01/2012 4:20p [facility] Internal Medicine Gladys Mckee, N.P. 93806 461.9 - [place] 382.9 Office Visit 01/19/2012 10:45a [facility] Internal Medicine Paty Walls M.D. 96871 847.0 - [place] Office Visit 11/16/2011 1:20p DO Not Use Gladys Varn, N.P. 48371 V70.0 [employer] 401.1 V72.31 272.4 V76.10 719.41 Office Visit 05/10/2011 1:20p DO Not Use [employer] Gladys Varn, 03063 401.1 N.P. 785.6 Office Visit 12/18/2010 2:30p DO Not Use Gladys Varn, 78849 599.0 [employer] N.P. Office Visit 11/09/2010 1:45p DO Not Use Gladys Varn, 61013 V72.31 [employer] N.P. Office Visit 08/19/2010 1:45p DO Not Use Gladys Varn, 73407 461.9 [employer] N.P. Office Visit 03/04/2010 11:30a DO Not Use Gladys Varn, 47603 466.0 [employer] N.P. 461.9 401.1 Office Visit 10/24/2009 11:30a DO Not Use Gladys Varn, 13233 382.9 [employer] N.P. Office Visit 08/26/2009 8:45a DO Not Use Gladys Varn, 83986 V72.31 [employer] N.P. 401.1 V04.81 Office Visit 05/06/2009 11:15a DO Not Use [employer] Gladys Varn, 56528 723.1 N.P. Office Visit 04/30/2009 1:30p DO Not Use [employer] Gladys Varn, 54554 461.9 N.P. 382.9 Office Visit 02/24/2009 3:45p DO Not Use Gladys Varn, 83087 401.1 [employer] N.P. Office Visit 12/13/2008 11:00a DO Not Use Flakita Coyle M.D., 57087 078.10 [employer] FACP Office Visit 08/28/2008 10:45a DO Not Use Gladys Varn, 19785 V72.31 [employer] N.P. 110.1 401.1 V04.81 Office Visit 03/20/2008 8:30a DO Not Use Gladys Varn, 56972 401.1 [employer] N.P. Office Visit 02/21/2008 8:30a DO Not Use Gladys Varn, 38187 401.1 [employer] N.P. Office Visit 01/26/2008 11:45a DO Not Use Gladys Varn, 31977 599.0 [employer] N.P. Office Visit 12/04/2007 11:30a DO Not Use Gladys Varn, 41198 465.9 [employer] N.P. Office Visit 10/04/2007 2:45p DO Not Use Gladys Varn, 45770 386.11 [employer] N.P. 782.0 Office Visit 09/20/2007 3:45p DO Not Use [employer] Gladys Varn, 40616 782.0 N.P. 780.2 Office Visit 08/22/2007 8:45a DO Not Use [employer] Gladys Varn, 44407 272.4 N.P. 401.1 Office Visit 07/25/2007 3:30p DO Not Use Gladys Varn, 39609 v72.31 [employer] N.P. 401.1 Plan of Care Future Appointment(s):02/08/2018 1:15 pm - Edward Oliveira M.D. at [facility] Vascular Medicine [facility]03/22/2018 1:40 pm - Gladys Mckee, N.P. at [facility] Internal Medicine [facility]01/09/2018 - Gladys Varn, N.P.I10 Essential ( primary) hypertensionComments:For your high blood pressure: Continue with your current medication. I would like you to monitor your blood pressure at home. If your readings at home are consistently higher than 140/90, please call the office.E87.6 HypokalemiaComments:To follow up on your low potassium I am repeating your blood work. I will contact you with your results.Be sure to get potassium rich foods in daily:Bananas, oranges, strawberries, cantaloupe, potatoes.
[2018-01-15 18:36] LABS: ABS Basophils 0.2 10^3/ul (0-0.2); ABS Eosinophils 0.4 10^3/ul (0-0.6); ABS Lymphocytes 1.5 10^3/ul (1.0-4.8); ABS Monocytes 0.6 10^3/ul (0-0.8); ABS Neutrophils 3.3 10^3/ul (1.5-7.7); ABS Nucleated RBC 0 10^3/ul; Eosinophil % 6.9 % (0-6); Hematocrit 41 % (35-47); Lymphocyte % 25.5 % (25-47); Mean Corpuscular HGB Conc 34 g/dl (31-36); Mean Corpuscular Hemoglobin 30 pg (27-31); Mean Corpuscular Volume 87 fL (80-97); Mean Platelet Volume 8 um3 (7.4-10.4); Nucleated Red Blood Cells % 0; Platelet Count 412 10^3/ul (150-450); Red Blood Count 4.67 10^6/ul (4.0-5.4); Red Cell Distribution Width 13 % (10.5-15)
[2018-01-15 18:51] LABS: EGFR Non-African American 57.7 (>60)
--- NOTE | 2018-01-15 19:21 | RAD ---
Indication: Chest pain. Single frontal view of the chest performed at 1830 hours was reviewed. Comparison is made with previous exam dated September 24, 2012. No mediastinal shift is noted. Heart is of normal size and configuration. Lung mcknight appear clear. IMPRESSION: NO ACTIVE CARDIOPULMONARY DISEASE IS NOTED.
--- NOTE | 2018-01-15 19:57 | ED ---
Aziza Washington Edward, scribed for Jimy Bradley MD on 01/15/18 at 1921 . HPI Chest Pain - HPI Summary HPI Summary: 47 y/o female presents to the ED c/o CP and tingling in upper and lower extremities lasting for several days. CP rated 6/10 in severity at triage. Sx not aggravated or alleviated by anything. Sx uterus Dec 29 2017. Pt states she has low potassium. Pt is on high blood pressure medication. PMHx anxiety attack years ago. - History of Current Complaint Chief Complaint: EDChestPainROMI Time Seen by Provider: 01/15/18 19:19 Hx Obtained From: Patient Onset/Duration: Started Days Ago Timing: Lasting Days Pain Intensity: 6 Pain Scale Used: 0-10 Numeric Aggravating Factor(s): Nothing Alleviating Factor(s): Nothing Associated Signs and Symptoms: Positive: Tingling - upper and lower extremities - Additional Pertinent History Primary Care Physician: OLEGARIO - Allergy/Home Medications Allergies/Adverse Reactions: Allergies Allergy/AdvReac Type Severity Reaction Status Date / Time Penicillins Allergy Unknown Unknown Verified 12/29/17 07:56 Reaction Details erythromycin base Allergy Rash Verified 12/29/17 07:56 [From Erythrocin] hydrocodone [From [place]] Allergy Rash Verified 12/30/17 14:46 PMH/Surg Hx/FS Hx/Imm Hx Previously Healthy: No Endocrine/Hematology History: Denies: Hx Diabetes Cardiovascular History: Reports: Hx Hypertension Denies: Hx Congestive Heart Failure, Hx Pacemaker/ICD Respiratory History: Denies: Hx Asthma History: Reports: Hx Kidney Stones - Hx OF AT AGE 14 Denies: Hx Renal Disease - kidney stones hx, Other Problems/Disorders - RENAL STONE YRS AGO Sensory History: Denies: Hx Hearing Aid Psychiatric History: Denies: Hx Panic Disorder - Cancer History Hx Chemotherapy: No Hx Radiation Therapy: No - Surgical History Surgery Procedure, Year, and Place: bladder surger FOR FIBROIDS 2012; RIGHT EAR SX W/ DR PEREZ 2011 TO REPAIR A HOLE IN HER EARDRUM; BOTTOM WISDOM TEETH EXTRACTION 1997; 2001 BENIGN TUMOR REMOVED FROM LEFT BREAST; Hx Anesthesia Reactions: Yes - EACH TIME N/V Infectious Disease History: No Infectious Disease History: Denies: Traveled Outside the [place] in Last 30 Days - Family History Known Family History: Positive: Unknown - Social History Alcohol Use: None Substance Use Type: Reports: None Smoking Status (MU): Never Smoked Tobacco Have You Smoked in the Last Year: No Review of Systems Constitutional: Negative Eyes: Negative ENT: Negative Positive: Chest Pain Respiratory: Negative Gastrointestinal: Negative Genitourinary: Negative Musculoskeletal: Negative Skin: Negative Positive: Numbness - tingling in upper and lower extremities Psychological: Normal All Other Systems Reviewed And Are Negative: Yes Physical Exam - Summary Physical Exam Summary: VITAL SIGNS: Reviewed. GENERAL: Patient is a well-developed and nourished female who is lying comfortable in the stretcher. Patient is not in any acute respiratory distress. HEAD AND FACE: No signs of trauma. No ecchymosis, hematomas or skull depressions. No sinus tenderness. EYES: PERRLA, EOMI x 2, No injected conjunctiva, no nystagmus. EARS: Hearing grossly intact. Ear canals and tympanic membranes are within normal limits. MOUTH: Oropharynx within normal limits. NECK: Supple, trachea is midline, no adenopathy, no JVD, no carotid bruit, no c- spine tenderness, neck with full ROM. CHEST: Symmetric, no tenderness at palpation LUNGS: Clear to auscultation bilaterally. No wheezing or crackles. CVS: Regular rate and rhythm, S1 and S2 present, no murmurs or gallops appreciated. ABDOMEN: Soft, non-tender. No signs of distention. No rebound no guarding, and no masses palpated. Bowel sounds are normal. EXTREMITIES: FROM in all major joints, no edema, no cyanosis or clubbing. NEURO: Alert and oriented x 3. No acute neurological deficits. Speech is normal and follows commands. SKIN: Dry and warm Triage Information Reviewed: Yes Vital Signs On Initial Exam: Initial Vitals Temp Pulse Resp BP Pulse Ox 99.1 F 92 16 141/69 99 01/15/18 17:17 01/15/18 17:17 01/15/18 17:17 01/15/18 17:17 01/15/18 17:17 Vital Signs Reviewed: Yes Diagnostics - Vital Signs Vital Signs Temp Pulse Resp BP Pulse Ox 01/15/18 19:00 89 14 114/66 98 01/15/18 18:30 85 19 128/72 97 01/15/18 18:24 89 131/85 99 01/15/18 18:23 97 98 01/15/18 17:17 99.1 F 92 16 141/69 99 - Laboratory Lab Results: Lab Results 01/15/18 01/15/18 01/15/18 Range/Units 18:26 18:26 18:26 WBC 6.0 (3.5-10.8) 10^3/ul RBC 4.67 (4.0-5.4) 10^6/ul Hgb 14.0 (12.0-16.0) g/dl Hct 41 (35-47) % MCV 87 (80-97) fL MCH 30 (27-31) pg MCHC 34 (31-36) g/dl RDW 13 (10.5-15) % Plt Count 412 (150-450) 10^3/ul MPV 8 (7.4-10.4) um3 Neut % (Auto) 54.5 (38-83) % Lymph % (Auto) 25.5 (25-47) % Sully % (Auto) 10.4 H (0-7) % Eos % (Auto) 6.9 H (0-6) % Baso % (Auto) 2.7 H (0-2) % Absolute Neuts (auto) 3.3 (1.5-7.7) 10^3/ul Absolute Lymphs (auto) 1.5 (1.0-4.8) 10^3/ul Absolute Monos (auto) 0.6 (0-0.8) 10^3/ul Absolute Eos (auto) 0.4 (0-0.6) 10^3/ul Absolute Basos (auto) 0.2 (0-0.2) 10^3/ul Absolute Nucleated RBC 0 10^3/ul Nucleated RBC % 0 D-Dimer, Quantitative < 200 (Less Than 230) ng/mL Sodium 138 (133-145) mmol/L Potassium 3.5 (3.5-5.0) mmol/L Chloride 101 (101-111) mmol/L Carbon Dioxide 28 (22-32) mmol/L Anion Gap 9 (2-11) mmol/L BUN 14 (6-24) mg/dL Creatinine 1.03 H (0.51-0.95) mg/dL Est GFR ( Amer) 74.2 (>60) Est GFR (Non-Af Amer) 57.7 (>60) BUN/Creatinine Ratio 13.6 (8-20) Glucose 99 (70-100) mg/dL Lactic Acid (0.5-2.0) mmol/L Calcium 10.2 (8.6-10.3) mg/dL Total Bilirubin 0.50 (0.2-1.0) mg/dL AST 13 (13-39) U/L ALT 14 (7-52) U/L Alkaline Phosphatase 86 (34-104) U/L Total Creatine Kinase 76 (10-223) U/L Troponin I 0.00 (<0.04) ng/mL Total Protein 8.1 (6.4-8.9) g/dL Albumin 5.0 (3.2-5.2) g/dL Globulin 3.1 (2-4) g/dL Albumin/Globulin Ratio 1.6 (1-3) Beta HCG, Quant 1.11 mIU/mL 01/15/18 Range/Units 18:26 WBC (3.5-10.8) 10^3/ul RBC (4.0-5.4) 10^6/ul Hgb (12.0-16.0) g/dl Hct (35-47) % MCV (80-97) fL MCH (27-31) pg MCHC (31-36) g/dl RDW (10.5-15) % Plt Count (150-450) 10^3/ul MPV (7.4-10.4) um3 Neut % (Auto) (38-83) % Lymph % (Auto) (25-47) % Sully % (Auto) (0-7) % Eos % (Auto) (0-6) % Baso % (Auto) (0-2) % Absolute Neuts (auto) (1.5-7.7) 10^3/ul Absolute Lymphs (auto) (1.0-4.8) 10^3/ul Absolute Monos (auto) (0-0.8) 10^3/ul Absolute Eos (auto) (0-0.6) 10^3/ul Absolute Basos (auto) (0-0.2) 10^3/ul Absolute Nucleated RBC 10^3/ul Nucleated RBC % D-Dimer, Quantitative (Less Than 230) ng/mL Sodium (133-145) mmol/L Potassium (3.5-5.0) mmol/L Chloride (101-111) mmol/L Carbon Dioxide (22-32) mmol/L Anion Gap (2-11) mmol/L BUN (6-24) mg/dL Creatinine (0.51-0.95) mg/dL Est GFR ( Amer) (>60) Est GFR (Non-Af Amer) (>60) BUN/Creatinine Ratio (8-20) Glucose (70-100) mg/dL Lactic Acid 1.8 (0.5-2.0) mmol/L Calcium (8.6-10.3) mg/dL Total Bilirubin (0.2-1.0) mg/dL AST (13-39) U/L ALT (7-52) U/L Alkaline Phosphatase (34-104) U/L Total Creatine Kinase (10-223) U/L Troponin I (<0.04) ng/mL Total Protein (6.4-8.9) g/dL Albumin (3.2-5.2) g/dL Globulin (2-4) g/dL Albumin/Globulin Ratio (1-3) Beta HCG, Quant mIU/mL Result Diagrams: 01/15/18 18:26 01/15/18 18:26 Lab Statement: Any lab studies that have been ordered have been reviewed, and results considered in the medical decision making process. - Radiology CXR Xray Interpretation: No Acute Changes - NO ACTIVE CARDIOPULMONARY DISEASE NOTED Radiology Interpretation Completed By: Radiologist - EKG 1 EKG Interpretation: 17:21 - SR @ 88 BPM. Normal axis, normal interval, no ischemic changes. Chest Pain Course/Dx - Course Assessment/Plan: CXR NAD. EKG normal. Potassium 3.5. Pt will be d/c home with f/ u with PCP. Recommend outpatient stress test MARTI. - Diagnoses Provider Diagnoses: Atypical chest pain Discharge - Discharge Plan Condition: Stable Disposition: HOME Patient Education Materials: Chest Pain (ED) Referrals: Jannette Khanna MD [Primary Care Provider] - 4 Days (PLEASE F/U IN 3-5 DAYS) Additional Instructions: RECOMMEND STRESS TEST OUTPATIENT MARTI EAT 1 BANANA A DAY TO MAINTAIN POTASSIUM LEVELS RETURN TO THE ED FOR THE RETURN OF OR WORSENING OF SYMPTOMS The documentation as recorded by the Aziza pantoja Edward accurately reflects the service I personally performed and the decisions made by Mirna blancas Abdul, MD.
[2018-01-15 19:59] VITALS: BP 122/68
== END 2018-01-15 19:59 | disposition home or self-care (01) ==
LOC: ED 17:06
DX: R07.89 Other chest pain (principal); Z88.3 Allergy status to other anti-infective agents; Z88.5 Allergy status to narcotic agent; Z88.0 Allergy status to penicillin
CPT/HCPCS: 36415; 71045; 80053; 82550; 83605; 84484; 84702; 85025; 85379; 93005; 99282

== ENCOUNTER 2018-05-28 07:03 | Emergency (ER) | payer BC ==
[2018-05-28 07:13] VITALS: BP 140/75
--- NOTE | 2018-05-28 12:17 | UC ---
Scotty Washington Natalie, scribed for Kevin Milner MD on 05/28/18 at 0810 . Respiratory Complaint HPI - HPI Summary HPI Summary: The patient is a 48 y/o F presenting to [facility] c/o sinus congestion with productive cough and sore throat that has been worsening for the last 5 days. She has not taken her temperature, but has had chills and a headache. She is able swallow despite her sore throat. The pain is rated 8/10 in severity. She has been taking Nyquil, Dayquil , VIX Vapor Rub, and a decongestant. The pt has had these symptoms before. She has not recently traveled. 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 Denies any chest pain or shortness of breath . No diaphoresis. Denies any abdominal pain , nausea or vomiting , diarrhea or constipation. - History of Current Complaint Chief Complaint: UCRespiratory Stated Complaint: SINUS ISSUE Time Seen by Provider: 05/28/18 07:07 Hx Obtained From: Patient Hx Last Menstrual Period: 05/18/18 Onset/Duration: Sudden Onset, Lasting Days - 5 days, Still Present Timing: Constant Pain Intensity: 8 Pain Scale Used: 0-10 Numeric Character: Cough: Productive Aggravating Factors: Nothing Alleviating Factors: Other - Nyquil, Dayquil, VIX Vapor Rub, decongestant Associated Signs And Symptoms: Positive: Chills, Nasal Congestion, Sinus Discomfort - Allergies/Home Medications Allergies/Adverse Reactions: Allergies Allergy/AdvReac Type Severity Reaction Status Date / Time Penicillins Allergy Unknown Unknown Verified 05/28/18 07:13 Reaction Details erythromycin base Allergy Rash Verified 05/28/18 07:13 [From Erythrocin] hydrocodone [From [place]] Allergy Rash Verified 05/28/18 07:13 Home Medications: Home Medications Norgestrel/Ethinyl Estrad TAB* [Ogestrel TAB 0.5/0.05*] 1 tab PO DAILY 05/28/18 [History Confirmed 05/28/18] PMH/Surg Hx/FS Hx/Imm Hx - Additional Past Medical History Additional PMH: 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 - Social History Alcohol Use: None Substance Use Type: None Smoking Status (MU): Never Smoked Tobacco Have You Smoked in the Last Year: No Review of Systems Constitutional: Chills ENT: Sore Throat, Sinus Congestion, Other - NEGATIVE: ear ache Respiratory: Cough - productive Cardiovascular: Negative Gastrointestinal: Negative Genitourinary: Negative Motor: Negative Neurovascular: Negative Musculoskeletal: Negative Neurological: Headache All Other Systems Reviewed And Are Negative: Yes Physical Exam - Summary Physical Exam Summary: Appearance: Well-Appearing, No Pain Distress, Well-Nourished Eyes: conjunctiva clear, no discharge ENT: Hearing grossly normal, no muffled/hoarse voice, 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 There is tendernesss of the frontal and the maxillary sinuses bilaterally Mild pharyngeal erythema without exudate. Mild tender lymphadenopathy cervical Neck: Normal, Supple Respiratory/Lung Sounds: Lungs clear, Normal breath sounds, No respiratory distress, No accessory muscle use Cardiovascular: RRR, No murmur Abdomen: Nontender, Soft, no guarding, not distended Bowel Sounds: Present Musculoskeletal: Normal Neurological: Alert, muscle tone normal Psychiatric:Normal, age appropriate behavior Skin: Normal, Warm, Dry, Normal color Triage Information Reviewed: Yes Vital Signs: Initial Vital Signs Temp 99.2 F 05/28/18 07:09 Pulse 107 05/28/18 07:09 Resp 16 05/28/18 07:09 BP 140/75 05/28/18 07:09 Pulse Ox 100 05/28/18 07:09 Vital Signs Reviewed: Yes UC Diagnostic Evaluation - Laboratory O2 Sat by Pulse Oximetry: 100 Respiratory Course/Dx - Course Course Of Treatment: The patient is a 48 y/o F presenting to [facility] c/o sinus congestion, sore throat, and productive cough worsening for the last 5 days. She additionally c/o chills and headaches, but she has not checked her temperature for a fever. She has taken Dayquil, Nyquil, Vix Vapor Rub, and a decongestant to some relief. BP noted and advised to follow up with PCP. Medications reviewed. Allergies noted. She will be discharged home with instructions for sinusitis. She is prescribed Doxycycline (allergic to penicillin)with a follow up with her PCP in one week. Patient is agreeable with this plan. - Differential Dx/Diagnosis Provider Diagnoses: sinusitis Discharge - Sign-Out/Discharge Documenting (check all that apply): Discharge/Admit/Transfer - Pt will be discharged home. - Discharge Plan Condition: Fair Disposition: HOME Prescriptions: DOXYcycline CAP(*) [DOXYcycline 100MG CAP(*)] 100 mg PO BID 14 Days #28 cap Patient Education Materials: Sinusitis (ED) Referrals: Jannette Khanna MD [Primary Care Provider] - 1 Week Additional Instructions: Start taking the antibiotic which has been prescribed to the pharmacy . Follow up with your primary care doctor in 1 week Patients blood pressure slightly high in Urgent care today , plan follow up with PCP for better control Return to Urgent care / ER if symptoms get worse. - Billing Disposition and Condition Condition: FAIR Disposition: Home The documentation as recorded by the Scotty pantoja Natalie accurately reflects the service I personally performed and the decisions made by me, Kevin Milner MD.
== END 2018-05-28 07:50 | disposition home or self-care (01) ==
LOC: UCEAST 07:03
DX: J32.9 Chronic sinusitis, unspecified (principal); I10 Essential (primary) hypertension; Z88.0 Allergy status to penicillin; Z88.1 Allergy status to other antibiotic agents; Z88.5 Allergy status to narcotic agent
CPT/HCPCS: 99212; G0463